=== PATIENT | male | born 1965 | race Caucasian/White ===

== ENCOUNTER 2018-03-03 09:58 | Emergency (ER) | payer SELFPAY ==
[2018-03-03 10:02] VITALS: BP 169/114; PULSE 89; RESP 16; TEMP 36.7; O2SAT 97
--- NOTE | 2018-03-03 10:28 | W.ED.GENAD ---
Discharge Plan Disposition Patient Disposition: HOME Condition: Good Discharge Details Chief Complaint: DentalOral Clinical Impression: Dental infection Primary Care Provider: LAURA,LOCAL ED Provider: Bruce Conway Home Meds and New Rx's Prescriptions: New penicillin V potassium 500 mg tablet 500 mg PO BID 10 Days Qty: 20 RF: 0 oxycodone-acetaminophen [Percocet] 5-325 mg tablet 1 tab PO .QHS PRN (Reason: Dental abcess pain) Qty: 7 RF: 0 No Action lisinopril 10 mg Tablet 10 mg PO DAILY RF: 0 Discharge Instructions Instructions: Dental Abscess (ED) Additional Instructions: Keep dentist appointment this week. Take all antibiotics. Referrals: [facility] Emergency Dept. [Outside] - Return if symptoms worsen Medical Decision Making Patient tolerated injection of Lidocaine 1% plain to the base of the affected tooth and gum. I used 30 g needle and .5 cc. Patient had immediate pain relief. There was slight bleeding and oozing of puss. We discussed risk versus benefits of using opiate. He preferred not to have much as he is a single father and has to work. He is scheduled to see a dentist in four days. I prescribed Pen VK for the infection and seven percocet for the pain to be taken only at night. Advised to return if symptoms worsen otherwise with dentist CLARI. HPI General Date/Time Provider Initiated Documentation: 03/03/18 10:01. Limitations to Documentation: no limitations. Information obtained by: patient. History of Present Illness 52 year old M presents to the emergency department with the chief complaint of Dental abscess, described as moderate, Patient did receive the following treatments prior to arrival, NSAID HPI Narrative: 52 y/o male here with c/o dental pain with infection. He chipped a upper left tooth about a week ago. Since then he has noticed increased pain with swelling at the base of the tooth. He has an appointment with his dentist in four days. Pain now unbearable and the swelling is worse. Denies any allergies to antibiotics. Has allergy to codeine but unsure of symptoms with allergy. Denies problems swallowing, fever, or SOB. Related Data Home Medications Medication Instructions Recorded Confirmed lisinopril 10 mg PO DAILY 03/03/18 03/03/18 oxycodone-acetaminophen [Percocet] 1 tab PO .QHS PRN #7 tab 03/03/18 penicillin V potassium 500 mg PO BID 10 Days #20 tab 03/03/18 Previous Rx's Medication Instructions Recorded oxycodone-acetaminophen [Percocet] 1 tab PO .QHS PRN #7 tab 03/03/18 penicillin V potassium 500 mg PO BID 10 Days #20 tab 03/03/18 Allergies Allergy/AdvReac Type Severity Reaction Status Date / Time codeine AdvReac Unverified 03/03/18 10:04 General Stated Complaint: DentalOral DIEGO: 4 Review of Systems Constitutional Reports as per HPI Eyes Reports system reviewed and no additional complaints, except as docu ENT Reports dental pain and Reports otalgia Cardiovascular Reports system reviewed and no additional complaints, except as docu Respiratory Reports system reviewed and no additional complaints, except as docu Gastrointestinal Reports system reviewed and no additional complaints, except as docu PFSH Social History Smoking/Tobacco Use Status: Current-Occasional Exam Const General: cooperative, healthy appearing, uncomfortable and no acute distress Nutritional Appearance: average body habitus Orientation: alert, awake and oriented x3 HENMT Head: normal to inspection Ears: hearing grossly normal bilaterally and TM's normal bilaterally General nose exam: external nose normal, nares normal and nasal mucous membranes and turbinates normal Face and sinus: sinuses nontender Face images: 1. swelling Mouth: oral mucosae normal, lip normal, tongue normal, oropharynx normal, no muffled voice and no trismus Teeth and gingiva: caries Teeth image: 1. Tooth fractured from decay. Swelling at the apical surface. Very painful to touch. No drainage. I injected .5 cc of 1% lidocaine at the base of tooth 12, 13, 14. Pt tolerated well and felt immediate less pain. Slight blood mixed with puss drained. Throat: posterior oropharynx normal Eyes General: appearance normal, both eyes and all related structures Neck Neck: normal visual inspection, full ROM and no lymphadenopathy Resp Effort & Inspection: normal respiratory effort Auscultation: clear to auscultation bilaterally Cardio Rate: regular rate Rhythm: regular rhythm Heart Sounds: S1 normal and S2 normal Course Vital Signs Temperature 36.7 C 03/03/18 10:02 Pulse 89 03/03/18 10:02 Respiratory Rate 16 03/03/18 10:02 Blood Pressure 169/114 H 03/03/18 10:02 Pulse Oximetry 97 03/03/18 10:02 Temperature 36.7 C 03/03/18 10:02 Temperature Source Skin 03/03/18 10:02 Pulse 89 03/03/18 10:02 Respiratory Rate 16 03/03/18 10:02 Respiratory Effort Non-Labored 03/03/18 10:05 Blood Pressure 169/114 H 03/03/18 10:02 Pulse Oximetry 97 03/03/18 10:02 Pain Level 10 03/03/18 10:05
--- NOTE | 2018-03-03 10:31 | ED.GENADUL_ITS ---
Discharge Plan Disposition Patient Disposition: HOME Condition: Good Discharge Details Chief Complaint: DentalOral Clinical Impression: Dental infection Primary Care Provider: LAURA,LOCAL ED Provider: Bruce Conway Home Meds and New Rx's Prescriptions: New penicillin V potassium 500 mg tablet 500 mg PO BID 10 Days Qty: 20 RF: 0 oxycodone-acetaminophen [Percocet] 5-325 mg tablet 1 tab PO .QHS PRN (Reason: Dental abcess pain) Qty: 7 RF: 0 No Action lisinopril 10 mg Tablet 10 mg PO DAILY RF: 0 Discharge Instructions Instructions: Dental Abscess (ED) Additional Instructions: Keep dentist appointment this week. Take all antibiotics. Referrals: [facility] Emergency Dept. [Outside] - Return if symptoms worsen Medical Decision Making Patient tolerated injection of Lidocaine 1% plain to the base of the affected tooth and gum. I used 30 g needle and .5 cc. Patient had immediate pain relief. There was slight bleeding and oozing of puss. We discussed risk versus benefits of using opiate. He preferred not to have much as he is a single father and has to work. He is scheduled to see a dentist in four days. I prescribed Pen VK for the infection and seven percocet for the pain to be taken only at night. Advised to return if symptoms worsen otherwise with dentist CLARI. HPI General Date/Time Provider Initiated Documentation: 03/03/18 10:01 . Limitations to Documentation: no limitations . Information obtained by: patient . History of Present Illness 52 year old M presents to the emergency department with the chief complaint of Dental abscess, described as moderate, Patient did receive the following treatments prior to arrival, NSAID HPI Narrative: 52 y/o male here with c/o dental pain with infection. He chipped a upper left tooth about a week ago. Since then he has noticed increased pain with swelling at the base of the tooth. He has an appointment with his dentist in four days. Pain now unbearable and the swelling is worse. Denies any allergies to antibiotics. Has allergy to codeine but unsure of symptoms with allergy. Denies problems swallowing, fever, or SOB. Related Data Home Medications Medication Instructions Recorded Confirmed lisinopril 10 mg PO DAILY 03/03/18 03/03/18 oxycodone-acetaminophen [Percocet] 1 tab PO .QHS PRN #7 tab 03/03/18 penicillin V potassium 500 mg PO BID 10 Days #20 tab 03/03/18 Previous Rx's Medication Instructions Recorded oxycodone-acetaminophen [Percocet] 1 tab PO .QHS PRN #7 tab 03/03/18 penicillin V potassium 500 mg PO BID 10 Days #20 tab 03/03/18 Allergies Allergy/AdvReac Type Severity Reaction Status Date / Time codeine AdvReac Unverified 03/03/18 10:04 General Stated Complaint: DentalOral DIEGO: 4 Review of Systems Constitutional Reports as per HPI Eyes Reports system reviewed and no additional complaints, except as docu ENT Reports dental pain and Reports otalgia Cardiovascular Reports system reviewed and no additional complaints, except as docu Respiratory Reports system reviewed and no additional complaints, except as docu Gastrointestinal Reports system reviewed and no additional complaints, except as docu PFSH Social History Smoking/Tobacco Use Status: Current-Occasional Exam Const General: cooperative, healthy appearing, uncomfortable and no acute distress Nutritional Appearance: average body habitus Orientation: alert, awake and oriented x3 HENMT Head: normal to inspection Ears: hearing grossly normal bilaterally and TM's normal bilaterally General nose exam: external nose normal, nares normal and nasal mucous membranes and turbinates normal Face and sinus: sinuses nontender Face images: 2 1. swelling Mouth: oral mucosae normal, lip normal, tongue normal, oropharynx normal, no muffled voice and no trismus Teeth and gingiva: caries Teeth image: 2 1. Tooth fractured from decay. Swelling at the apical surface. Very painful to touch. No drainage. I injected .5 cc of 1% lidocaine at the base of tooth 12, 13, 14. Pt tolerated well and felt immediate less pain. Slight blood mixed with puss drained. Throat: posterior oropharynx normal Eyes General: appearance normal, both eyes and all related structures Neck Neck: normal visual inspection, full ROM and no lymphadenopathy Resp Effort & Inspection: normal respiratory effort Auscultation: clear to auscultation bilaterally Cardio Rate: regular rate Rhythm: regular rhythm Heart Sounds: S1 normal and S2 normal Course Vital Signs Temperature 36.7 C 03/03/18 10:02 Pulse 89 03/03/18 10:02 Respiratory Rate 16 03/03/18 10:02 Blood Pressure 169/114 H 03/03/18 10:02 Pulse Oximetry 97 03/03/18 10:02 Temperature 36.7 C 03/03/18 10:02 Temperature Source Skin 03/03/18 10:02 Pulse 89 03/03/18 10:02 Respiratory Rate 16 03/03/18 10:02 Respiratory Effort Non-Labored 03/03/18 10:05 Blood Pressure 169/114 H 03/03/18 10:02 Pulse Oximetry 97 03/03/18 10:02 Pain Level 10 03/03/18 10:05
== END 2018-03-03 10:40 | disposition home or self-care (01) ==
LOC: ER 10:43
PROVIDERS: Emergency Provider Nurse Practitioner Family
DX: K04.7 Periapical abscess without sinus (principal); F17.210 Nicotine dependence, cigarettes, uncomplicated
CPT/HCPCS: 99283

== ENCOUNTER 2019-10-06 02:38 | Outpatient (CLI) | payer MEDICAID, SELFPAY ==
[2019-10-06 09:56] LABS: HCT 45.3 % (40.0-50.0); HGB 15.7 g/dL (13.5-17.5); Mean Corp. HGB Concentration 34.7 g/dL (32.0-36.0); Mean Corpuscular Hemoglobin 29.7 pg (27.0-33.0); Mean Corpuscular Volume 85.6 fL (80-95); Mean Platelet Volume 9.1 fL (8.0-11.0); Platelet Count 284 x1000/uL (130-400); RBC 5.29 m/cumm (4.50-6.00); RBC Distribution Width 13.2 % (11.8-14.1); White Blood Cell Count 9.85 k/cumm (4.4-10.8)
[2019-10-06 10:09] LABS: Hemoglobin A1C 9.4 % (3.8-5.6)
[2019-10-06 10:25] LABS: COMMENT (LAB VIEW ONLY) 150.28 mg/dL; Microalb ug/mg Crea 16.4 ug/mg Cr
[2019-10-06 10:58] LABS: ALT 41 U/L (16-63); AST 14 U/L (15-37); Albumin 4.1 g/dL (3.4-5.0); Alkaline Phosphatase 127 U/L (46-116); Anion Gap 10.6 mmol/L (3-11); BUN 12 mg/dL (7-18); Bilirubin, Total 0.4 mg/dL (0.2-1.0); CO2 26.4 mmol/L (21.0-32.0); CREATININE 0.89 mg/dL (0.70-1.30); Calcium 9.3 mg/dL (8.5-10.1); Calculated LDL 146 mg/dL (<100); Chloride 101 mmol/L (98-107); Cholesterol 222 mg/dL (<200); Glucose 217 mg/dL (74-106); HDL Cholesterol 31 mg/dL (40-60); Potassium 4.5 mmol/L (3.5-5.1); Sodium 138 mmol/L (136-145); Total Protein 7.5 g/dL (6.4-8.2); Triglyceride 228 mg/dL (<150)
== END 2019-10-06 02:58 ==
PROVIDERS: PCP Family Medicine; Visit Provider Family Medicine
DX: I10 Essential (primary) hypertension (principal); E78.5 Hyperlipidemia, unspecified; E11.9 Type 2 diabetes mellitus without complications
CPT/HCPCS: 36415; 80053; 80061; 85027; 82043; 82570; 83036

== ENCOUNTER 2019-11-04 01:17 | Outpatient (CLI) | payer MEDICAID, SELFPAY ==
[2019-11-04] MEDS: Omnipaque 350 MG/ML 100 ML BTL IJ (12:55)
--- NOTE | 2019-11-04 12:57 | DI.CT_ITS ---
EXAM: CT ABDOMEN PELVIS CTA CLINICAL HISTORY: Abdominal aortic aneurysm, I71.4. TECHNIQUE: Imaging Protocol: Axial CT angiography was performed with multi-slice acquisition and m ulti-planar and/or 3D reconstructions. CONTRAST MATERIAL: Intravenous: Omnipaque 350 Contrast volume:100 mL Oral: No COMPARISON: CT CT_ABDOMEN, PELVIS from 12/12/2015 FINDINGS: Vascular Structures: Celiac [place]/SMA: No evidence of occlusion or significant stenosis. Atherosclerosis. Renal Arteries: No evidence of occlusion or significant stenosis. There is a single renal artery per fusing each kidney. Aorta: There is a 3.9 AP by 4.2 transverse cm infrarenal abdominal aortic aneurysm. No dissection. Atherosclerosis. Pelvis: Iliac Arteries: No evidence of occlusion. Mild narrowing of the internal iliac arteries bilaterally . Atherosclerosis. Common Femoral Arteries: No evidence of occlusion or significant stenosis. Atherosclerosis. Soft Tissues:Unremarkable. Lung bases:Normal. Liver: Fatty infiltration. No measurable mass. Gallbladder and biliary tract: Cholelithiasis. No biliary ductal dilatation. Pancreas: Normal density, no abnormal calcifications or inflammatory process. Spleen: Normal. Kidneys: Normal size, contour and axis. No radiodense stones or obstructive uropathy. No masses seen. Adrenal glands: No masses seen. Bladder: Symmetric distention, no gross wall thickening. Bowel: No obstruction or bowel wall thickening. Anastomotic sutures are seen in the mid sigmoid colon . No evidence of an acute appendicitis. Peritoneal cavity: No ascites, collection or mesenteric inflammatory response. Bones: Degenerative changes are seen in the spine. Lymph nodes: Within normal limits. IMPRESSION: 1. 0.9 AP by 4.2 transverse cm infrarenal abdominal aortic aneurysm. 2. Atherosclerosis. 3. Cholelithiasis. No biliary ductal dilatation. 4. Fatty infiltration of the liver. RADIATION DOSE DELIVERED: Total DLP DATA REPOSITORY: All CT scans at this facility are submitted to the National Radiology Data Registry (NRDR) Dose Index Registry (DIR) with the [employer] (ACR). RADIATION OPTIMIZATION: All CT scans at this facility use at least one of these dose optimization te chniques: automated exposure control; mA and/or kV adjustment per patient size (includes targeted exa ms where dose is matched to clinical indication); or iterative reconstruction.
== END 2019-11-04 01:37 ==
PROVIDERS: PCP Family Medicine; Visit Provider Family Medicine
DX: I71.4 Abdominal aortic aneurysm, without rupture (principal); K80.20 Calculus of gallbladder without cholecystitis without obstruction; K76.0 Fatty (change of) liver, not elsewhere classified; I25.10 Atherosclerotic heart disease of native coronary artery without angina pectoris
CPT/HCPCS: 74174; J3490

== ENCOUNTER 2022-04-09 15:26 | Emergency (ER) | payer MEDICAID, SELFPAY ==
[2022-04-09] VITALS (17 sets, daily range): BP systolic 118–145; BP diastolic 75–98; PULSE 83–99; RESP 12–24; TEMP 36.7; O2SAT 94–98
--- NOTE | 2022-04-09 15:30 | DI.CT_ITS ---
Exam(s) CT ABDOMEN PELVIS CTA EXAM: CT ABDOMEN PELVIS CTA CLINICAL HISTORY: aaa, severe abdominal pain. TECHNIQUE: Imaging Protocol: Axial CT angiography was performed with multi-slice acquisition and m ulti-planar and/or 3D reconstructions. CONTRAST MATERIAL: Intravenous: Omnipaque 350 Contrast volume:structured data in ml Oral: no COMPARISON: CT CT ABDOMEN PELVIS CTA from 11/04/2019 FINDINGS: Vascular Structures: Celiac [place]/SMA: No evidence of stenosis. Renal Arteries: No evidence of stenosis. There is a single renal artery perfusing each kidney. Aorta: Stable infrarenal abdominal aortic aneurysm measuring 4.2 Cm. No dissection. Small amount of mural thrombus, stable. Moderate mural calcification. Pelvis: Iliac Arteries: Stable mild dilatation proximal right common iliac artery. No evidence of stenosis. Common Femoral Arteries: No evidence of stenosis. Soft Tissues: Lung bases:Normal. Liver: Mildly enlarged. Hepatic steatosis.. No measurable mass. Gallbladder and biliary tract: No radiodense calculus or dilation. Pancreas: Normal density, no abnormal calcifications or inflammatory process. Spleen: Normal. Kidneys: Normal size, contour and axis. No radiodense stones or obstructive uropathy. No masses seen. Adrenal glands: No masses seen. Bladder: Symmetric distention, no gross wall thickening. Bowel: No obstruction or bowel wall thickening. Peritoneal cavity: No ascites, collection or mesenteric inflammatory response. Bones: No fracture, lytic or blastic lesion. Degenerative disc changes with disc bulging and endplate osteophyte at L4-5 and L5-S1. Lymph nodes: Within normal limits. IMPRESSION: Stable 4.2 centimeter abdominal aortic aneurysm with mild mural thrombus. Branch vessels are patent. No acute abnormality. RADIATION DOSE DELIVERED: 606.84mGy.cm Total DLP DATA REPOSITORY: All CT scans at this facility are submitted to the National Radiology Data Registry (NRDR) Dose Index Registry (DIR) with the [employer] (ACR). RADIATION OPTIMIZATION: All CT scans at this facility use at least one of these dose optimization te chniques: automated exposure control; mA and/or kV adjustment per patient size (includes targeted exa ms where dose is matched to clinical indication); or iterative reconstruction.
[2022-04-09 15:44] LABS: Source Nasal/Nares
--- NOTE | 2022-04-09 15:44 | ED.GENADUL_ITS ---
Discharge Plan Disposition Patient Disposition: Home Condition: Stable Discharge Details Clinical Impression: Abdominal pain, Hyperglycemia Primary Care Provider: Unknown,Unknown ED Provider: Chito Acevedo Home Meds and New Rx's Prescriptions: Continued insulin glargine [Lantus U-100 Insulin] 100 unit/mL solution 30 unit SC QHS Qty: 30 3RF (DME) BD Insulin Syringe (half unit) 0.3 mL 31 gauge x 5/16 syringe See Rx Instructions .ROUTE .MEDSUPPLY Qty: 100 5RF Rx Instructions: Twice daily with NPH insulin lisinopril 20 mg tablet 20 mg PO DAILY aspirin 81 mg capsule 81 mg PO DAILY epinephrine 0.3 mg/0.3 mL auto-injector 0.3 mg IM ONCE Rx Instructions: as a single dose; may repeat once Jardiance 10 mg tablet 10 mg PO DAILY sertraline 100 mg tablet 150 mg PO DAILY tramadol 50 mg tablet 100 mg PO Q12H PRN Discontinued sildenafil [Viagra] 100 mg tablet 100 mg PO DAILY PRN Rx Instructions: administer 30 minutes to 4 hours before activity acetaminophen 500 mg capsule 1,000 mg PO Q6H PRN No Action atorvastatin 40 mg tablet 40 mg PO QHS Qty: 90 3RF atorvastatin 20 mg tablet 20 mg PO DAILY Discharge Instructions Instructions: Oxycodone, Rapid Release (By mouth), Abdominal Pain (ED) Additional Instructions: Allow for bowel rest today. Clear fluids only today and tomorrow morning. If pain is resolved you can advance to bland foods tomorrow afternoon. Please clear fluids to stay hydrated. Please contact your primary care physician to arrange follow-up. Call tomorrow. Some medication cannot be reconciled today. Be sure to discuss this with your doctor and take medication as prescribed. Return to the ER immediately for any worsening or new concerning symptoms. Medical Decision Making [id number] --56-year-old male with history of diverticulitis, status post partial colectomy, AAA, here with worsening abdominal pain since yesterday. Patient diffusely tender, worse in his lower abdomen. He has had frequent loose stool since yesterday. Consider AAA rupture versus diverticulitis versus other. Plan to obtain CT of the abdomen pelvis. -- CT of the abdomen pelvis was interpreted by radiology:IMPRESSION: 1. Stable infrarenal abdominal aortic aneurysm in comparison with prior study 11/04/2019. No expansion. No acute features of rupture or impending rupture. 2. Mesenteric branch arteries are widely patent without stenotic features. 3. 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 4. Degenerative lumbar spine disease. Minor posterior broad-based disc bulge at L4-L5 with associated mild to moderate spinal stenosis. See series 5, image 52. 5. Previous partial resection of the sigmoid colon with anastomotic staple line noted. No acute bowel pathology. --Patient reassessed and pain significantly improved after analgesic. -- Labs reviewed and leukocytosis noted. Glucose mildly elevated at 161. Patient does have mild anion gap acidosis 14.2. I recommended IV fluid and patient provided informed refusal. Patient unable to provide stool sample here. Patient requesting discharge and will plan to follow-up with his primary care physician tomorrow. All results were discussed with the patient. He understands importance of timely follow-up and that he should return immediately for any worsening or new concerning symptoms. Lab Data Lab results reviewed: Yes I reviewed the patient's lab results. Labs: Laboratory Tests Range/Units 04/09/22 04/09/22 04/09/22 15:35 15:35 15:35 WBC (4.4-10.8) 10^3/uL 15.38 H RBC (4.36-5.78) 10^6/uL 5.64 Hgb (13.5-17.5) g/dL 16.6 Hct (40.0-50.0) % 47.9 MCV (80-95) fL 85 MCH (27.0-33.0) pg 29.4 MCHC (32.0-36.0) % 34.7 RDW (11.8-14.1) % 12.5 Plt Count (130-400) 10^3/uL 297 MPV (8.0-11.0) fL 8.8 Immature Gran % 0.8 Neutrophils % 70.7 Lymphocytes % 20.2 Monocytes % 6.4 Eosinophils % 1.2 Basophils % 0.7 Nucleated RBC % (0.0-0.3) % 0.0 Absolute Neutrophils (1.2-6.7) 10^3/uL 10.87 H Absolute Lymphocytes (1.2-3.4) 10^3/uL 3.11 Absolute Monocytes (0.1-0.8) 10^3/uL 0.98 H Absolute Eosinophils (0.0-0.7) 10^3/uL 0.18 Absolute Basophils (0.0-0.2) 10^3/uL 0.11 Sodium (136-145) mmol/L 137 Potassium (3.5-5.1) mmol/L 3.9 Chloride (98-107) mmol/L 99 Carbon Dioxide (21.0-32.0) mmol/L 23.8 Anion Gap (3-11) mmol/L 14.2 H BUN (7-18) mg/dL 19 H Creatinine (0.70-1.30) mg/dL 0.8 Est GFR (CKD-EPI 2020) (mL/min/1.73m2) 105.17 Glucose (74-106) mg/dL 161 H Calcium (8.5-10.1) mg/dL 9.6 Total Bilirubin (0.2-1.0) mg/dL 0.4 AST (15-37) U/L 21 ALT (16-63) U/L 36 Alkaline Phosphatase (46-116) U/L 139 H Total Protein (6.4-8.2) g/dL 8.9 H Albumin (3.4-5.0) g/dL 4.6 Lipase (73-393) U/L 135 Urine Color (Yellow) Urine Clarity (Clear) Urine pH (5-8) Ur Specific [place] (1.005-1.025) Urine Protein (Negative) mg/dL Urine Ketones (Negative) mg/dL Urine Blood (Negative) Urine Nitrite (Negative) Urine Bilirubin (Negative) Urine Urobilinogen (Up TO 0.2) EU/dL Ur Leukocyte Esterase (Negative) Urine Glucose (Negative) mg/dL COVID-19 Source SARS-CoV-2 (PCR) (Negative) Patient ABO/Rh O Positive Antibody Screen NEGATIVE Range/Units 04/09/22 04/09/22 15:40 17:20 WBC (4.4-10.8) 10^3/uL RBC (4.36-5.78) 10^6/uL Hgb (13.5-17.5) g/dL Hct (40.0-50.0) % MCV (80-95) fL MCH (27.0-33.0) pg MCHC (32.0-36.0) % RDW (11.8-14.1) % Plt Count (130-400) 10^3/uL MPV (8.0-11.0) fL Immature Gran % Neutrophils % Lymphocytes % Monocytes % Eosinophils % Basophils % Nucleated RBC % (0.0-0.3) % Absolute Neutrophils (1.2-6.7) 10^3/uL Absolute Lymphocytes (1.2-3.4) 10^3/uL Absolute Monocytes (0.1-0.8) 10^3/uL Absolute Eosinophils (0.0-0.7) 10^3/uL Absolute Basophils (0.0-0.2) 10^3/uL Sodium (136-145) mmol/L Potassium (3.5-5.1) mmol/L Chloride (98-107) mmol/L Carbon Dioxide (21.0-32.0) mmol/L Anion Gap (3-11) mmol/L BUN (7-18) mg/dL Creatinine (0.70-1.30) mg/dL Est GFR (CKD-EPI 2020) (mL/min/1.73m2) Glucose (74-106) mg/dL Calcium (8.5-10.1) mg/dL Total Bilirubin (0.2-1.0) mg/dL AST (15-37) U/L ALT (16-63) U/L Alkaline Phosphatase (46-116) U/L Total Protein (6.4-8.2) g/dL Albumin (3.4-5.0) g/dL Lipase (73-393) U/L Urine Color (Yellow) Yellow Urine Clarity (Clear) Clear Urine pH (5-8) 5.5 Ur Specific [place] (1.005-1.025) 1.010 Urine Protein (Negative) mg/dL Negative Urine Ketones (Negative) mg/dL Negative Urine Blood (Negative) Negative Urine Nitrite (Negative) Negative Urine Bilirubin (Negative) Negative Urine Urobilinogen (Up TO 0.2) EU/dL 0.2 Ur Leukocyte Esterase (Negative) Negative Urine Glucose (Negative) mg/dL 500 H COVID-19 Source Nasal/Nares SARS-CoV-2 (PCR) (Negative) Negative Patient ABO/Rh Antibody Screen Sign Out No HPI General Mode of arrival: EMS . Date/Time Provider Initiated Documentation: 04/09/22 15:37 . Limitations to Documentation: no limitations . Information obtained by: patient and EMS . HPI Narrative: 56-year-old male with history of AAA, diverticulitis, status post partial colectomy, presents with chief complaint of severe abdominal pain. Pain started yesterday and has persisted. Pain constant. Worse today. Pain is severe with no modifiers. He has associated loose stool. With frequent bowel movements today. Related Data Home Medications Medication Instructions Recorded Confirmed atorvastatin 40 mg tablet 40 mg PO QHS #90 tabs 01/19/20 insulin glargine 100 unit/mL 30 unit (0.3 mL) subcut QHS #30 mL 01/19/20 04/09/22 subcutaneous solution (Lantus U-100 Insulin) insulin syr/ndl U100 half kiley 0.3 #100 ea 05/28/20 mL 31 gauge x 5/16 (BD Insulin Syringe Ultra-Fine (half unit)) aspirin 81 mg capsule 81 mg PO DAILY 03/22/22 04/09/22 atorvastatin 20 mg tablet 20 mg PO DAILY 03/22/22 04/09/22 empagliflozin 10 mg tablet 10 mg PO DAILY 03/22/22 04/09/22 (Jardiance) epinephrine 0.3 mg/0.3 mL 0.3 mg IM ONCE 03/22/22 injection, auto-injector lisinopril 20 mg tablet 20 mg PO DAILY 03/22/22 04/09/22 sertraline 100 mg tablet 150 mg PO DAILY 03/22/22 04/09/22 tramadol 50 mg tablet 100 mg PO Q12H PRN 03/22/22 04/09/22 Previous Rx's Medication Instructions Recorded atorvastatin 40 mg tablet 40 mg PO QHS #90 tabs 01/19/20 insulin glargine 100 unit/mL 30 unit (0.3 mL) subcut QHS #30 mL 01/19/20 subcutaneous solution (Lantus U-100 Insulin) insulin syr/ndl U100 half kiley 0.3 #100 ea 05/28/20 mL 31 gauge x 5/16 (BD Insulin Syringe Ultra-Fine (half unit)) Allergies Allergy/AdvReac Type Severity Reaction Status Date / Time bee venom protein (honey bee) Allergy Verified 04/09/22 15:33 codeine AdvReac Unverified 04/09/22 15:33 General Stated Complaint: Abd Prob DIEGO: 2 Review of Systems All systems reviewed & are unremarkable except as noted in HPI and below Constitutional Constitutional: Denies fever(s) Cardiovascular Cardiovascular: Denies chest pain Gastrointestinal Gastrointestinal: Reports as per HPI PFSH All Active Problems (Updated 04/09/22 @ 18:54 by Chito Acevedo MD) Abdominal pain (Acute) Hyperglycemia (Acute) Hepatic steatosis (Acute) Cholelithiasis (Acute) Tobacco dependence syndrome (Acute) Retrolisthesis (Acute ~10/10/13) Hyperlipidemia (Acute ~11/10/10) HTN (hypertension) (Chronic) Gastroesophageal reflux disease (Chronic) Facet hypertrophy of lumbar region (Acute ~10/10/13) DM II (diabetes mellitus, type II), controlled (Acute ~09/24/13) Degenerative disc disease, lumbar (Acute ~10/10/13) Abdominal aortic aneurysm (Acute ~01/08/15) 3.9 x 4[address] scan from 11/04/2019 Medical History Acute diverticulitis (~12/12/15) Anxiety Borderline diabetes (~11/10/10) Chronic back pain (~09/07/17) Depression Dextroscoliosis (~10/10/13) History of colonic diverticulitis Myofascial pain (~10/10/13) Obesity Restless legs syndrome (~11/09/10) Sacroiliitis Social History Smoking/Tobacco Use Status: Current-Occasional Smoking risk assessment performed?: Yes Alcohol Intake: current Alcohol Intake frequency: a few times a month Drug use: Daily Substance use type: marijuana Caregiver/Support person: No Household members: significant other Housing: house Pets and animals: No Sexually active: Yes Do you think of yourself as: straight/heterosexual Current gender identity: male What is your relationship status?: living with partner How often do you talk on the phone with friends or family?: three or more times per week How often do you get together with friends or relatives?: decline to answer How often do you attend hinduism or restorationist services?: decline to answer Do you belong to any clubs or organized social groups?: no Panel score (0-1 are the most socially isolated patients): 2 What type of physical activity do you participate in: walking Duration: 30-45 minutes/day Frequency: daily Kristin/Pentecostalism: None Seatbelt use: always Helmet use: No Drive intox or ride w/intox public transit bus driver: No Do you feel safe at home: Yes Do you feel safe in your relationship?: Yes Exam Const General: cooperative HENMT Mouth: moist mucous membranes Eyes Conjunctivae: normal conjunctivae Sclera: normal sclerae Resp Auscultation: clear to auscultation bilaterally, no rales, no rhonchi and no wheezes Cardio Rate: regular rate and not tachycardic Rhythm: regular rhythm GI Palpation: soft, not firm, no guarding, no masses, not rigid and tender (Diffuse tenderness, worse lower abdomen) Skin General skin exam: no rashes or lesions noted Neuro General: patient alert, patient awake, patient oriented x3 and tone normal Extrem General: no edema and other (1+ DP bilaterally) Psych Appearance: grossly normal Mental Status: mental status grossly normal Speech and Movement: speech and movement normal Course Vital Signs Vital signs: Vital Signs Temperature 36.7 C 04/09/22 15:30 Pulse 91 H 04/09/22 15:30 Respiratory Rate 15 04/09/22 15:30 Blood Pressure 145/98 H 04/09/22 15:30 Pulse Oximetry 98 04/09/22 15:30 Temperature 36.7 C 04/09/22 15:30 Temperature Source Skin 04/09/22 15:30 Pulse 91 H 04/09/22 15:30 Respiratory Rate 15 04/09/22 15:30 Respiratory Effort Non-Labored 04/09/22 15:36 Blood Pressure 145/98 H 04/09/22 15:30 Blood Pressure Position Sitting 04/09/22 15:30 Pulse Oximetry 98 04/09/22 15:30 Oxygen Delivery Method Room Air 04/09/22 15:30 Oxygen Flow Rate 0 04/09/22 15:30 Pain Level 9 04/09/22 15:30 Lab/Test Results Lab/Test Results: Laboratory Tests Range/Units 04/09/22 15:40 COVID-19 Source Nasal/Nares PAWSS Have you Been Recently Intoxicated or Drunk Within the Last 30 days?: No Have you Ever Experienced Previous Episodes of Alcohol Withdrawal?: No Have you ever Experienced Withdrawal Seizures?: No Have you ever Experienced Delirium Tremens(DT)s?: No Have you ever undergone Alcohol Rehabilitation Treatment (i.e, inpt ot outpatient treatment programs)?: No Have you ever Experienced Blackouts?: No Have you ever Combined Alcohol with other Downers within the last 90 days?: No Have you ever Combined Alcohol with any other Substance of Abuse during the last 90 days?: No Positive Blood Alcohol level on Presentation? [PCS.BAL]: No Evidence of Increased Autonomic Activity (i.e. HR>120, tremor, sweating, agitation, nausea)?: No Result: 0
[2022-04-09 15:49] LABS: Abs Immature Grans 0.12 10^3/uL (0.0-0.06); Absolute Eosinophil Count 0.18 10^3/uL (0.0-0.7); Absolute Monocyte Count 0.98 10^3/uL (0.1-0.8); Basophils % 0.7; Eosinophils % 1.2; HCT 47.9 % (40.0-50.0); HGB 16.6 g/dL (13.5-17.5); Immature Grans % 0.8; Lymphocytes % 20.2; MCH 29.4 pg (27.0-33.0); MCHC 34.7 % (32.0-36.0); MCV 85 fL (80-95); MPV 8.8 fL (8.0-11.0); Monocytes % 6.4; Neutrophils % 70.7; Platelet Count 297 10^3/uL (130-400); RBC 5.64 10^6/uL (4.36-5.78); RDW 12.5 % (11.8-14.1); RDW-SD 38.5 fL; WBC 15.38 10^3/uL (4.4-10.8)
[2022-04-09 15:50] LABS: Absolute Basophil Count 0.11 10^3/uL (0.0-0.2); Absolute Lymphocyte Count 3.11 10^3/uL (1.2-3.4); Absolute Neutrophil Count 10.87 10^3/uL (1.2-6.7)
[2022-04-09 16:04] LABS: ALT 36 U/L (16-63); AST 21 U/L (15-37); Albumin 4.6 g/dL (3.4-5.0); Alkaline Phosphatase 139 U/L (46-116); Anion Gap 14.2 mmol/L (3-11); BUN 19 mg/dL (7-18); Bilirubin, Total 0.4 mg/dL (0.2-1.0); CO2 23.8 mmol/L (21.0-32.0); CREATININE 0.8 mg/dL (0.70-1.30); Calcium 9.6 mg/dL (8.5-10.1); Chloride 99 mmol/L (98-107); Estimated GFR 105.17 (mL/min/1.73m2); Glucose 161 mg/dL (74-106); Lipase 135 U/L (73-393); Potassium 3.9 mmol/L (3.5-5.1); Sodium 137 mmol/L (136-145); Total Protein 8.9 g/dL (6.4-8.2)
[2022-04-09] MEDS: ACETAMINOPHEN 1,000 MG/100 ML BTL 400 MG IVPB (16:27)
[2022-04-09 16:28] LABS: COVID-19 PCR Negative (Negative)
[2022-04-09] MEDS: Normal Saline - Diluent 50 ML VIAL IJ (17:16)
[2022-04-09] MEDS: Omnipaque 350 MG/ML 100 ML BTL IJ (17:16)
--- NOTE | 2022-04-09 17:32 | DI.VRAD_ITS ---
PROCEDURE INFORMATION: Exam: CTA Abdomen and Pelvis With Contrast Exam date and time: 04/09/2022 5:01 PM Age: 56 years old Clinical indication: Acute; Patient HX: Aaa, severe abdominal pain TECHNIQUE: Imaging protocol: Computed tomographic angiography of the abdomen and pelvis with contrast. 3D rendering (Not supervised by radiologist): MIP and/or 3D reconstructed images were created by the technologist. COMPARISON: CT ABDOMEN PELVIS CTA 11/04/2019 12:46 PM FINDINGS: Lungs: Lung bases are clear. Pleural spaces: No pleural effusion. Heart: Normal heart size. No pericardial effusion. Right-sided coronary artery atherosclerotic calcium is visible. Aorta: An infrarenal abdominal aortic fusiform aneurysm is noted. AP diameter of 3.9 cm and transverse diameter of 4 cm. Aneurysm extends proximally 6 cm cephalo caudal. There is no evidence of rupture. On previous study 11/04/2019, the aneurysm measured 3.8 cm AP x 4.0 cm transversely. No evidence of expansion or enlargement. There is some right and posterior mural thrombus noted. See series 5, image 42. This is a small rim of mural thrombosis. This was also evident on prior exam, but is less prominent on current evaluation suggesting some partial resorption. Celiac trunk and mesenteric arteries: Celiac artery is widely patent. Superior mesenteric arteries widely patent. Renal arteries: Right renal artery is widely patent. Left renal artery is widely patent. Right iliac arteries: Right common iliac artery fusiform aneurysmal change at 18 mm. No stenotic changes. Left iliac arteries: Left common iliac artery without aneurysmal change. No stenotic changes. Liver: Diffuse mild fatty liver change. Gallbladder and bile ducts: The gallbladder is normal in size and shape. No stones or inflammatory changes. Pancreas: Mild pancreatic atrophy. No acute changes. Spleen: The spleen is normal in size, contour and attenuation. Adrenal glands: The adrenal glands are normal in size and contour bilaterally. Kidneys and ureters: The kidneys bilaterally are unremarkable. Normal attenutation. No hydronephrosis. No calculi. Stomach and bowel: Gastric morphology is unremarkable. No edema. No gastric outlet obstruction. Small bowel loops are normal in course and caliber. There is no mucosal edema or bowel wall thickening. No obstructive features. The colon contains formed fecal material. There is no bowel wall thickening. No inflammatory features. No obstruction. Previous distal sigmoid bowel resection with anastomotic staple line. There is a paucity of feces within the colon. This is likely related to decreased p.o. intake. Appendix: No evidence of appendicitis. Intraperitoneal space: Unremarkable. No free air. No significant fluid collection. Lymph nodes: Unremarkable. No enlarged lymph nodes. Urinary bladder: Urinary bladder is unremarkable in appearance. No wall thickening. No intravesicular calculi. No intravesicular gas.Reproductive: Prostate gland is unremarkable. Reproductive: Unremarkable as visualized. Bones/joints: Degenerative lumbar spine disease. Soft tissues: Unremarkable. IMPRESSION: 1. Stable infrarenal abdominal aortic aneurysm in comparison with prior study 11/04/2019. No expansion. No acute features of rupture or impending rupture. 2. Mesenteric branch arteries are widely patent without stenotic features. 3. 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 4. Degenerative lumbar spine disease. Minor posterior broad-based disc bulge at L4-L5 with associated mild to moderate spinal stenosis. See series 5, image 52. 5. Previous partial resection of the sigmoid colon with anastomotic staple line noted. No acute bowel pathology. Dictated and Authenticated by: Yemi Villagomez MD. Ordering:JIM Dale MD
[2022-04-09] MEDS: HYDROmorphone 2 MG/ML SYR 1 MG IVP (18:00)
[2022-04-09] MEDS: Normal Saline Flush 10 ML SYR IVP (18:01)
[2022-04-09 18:38] LABS: Bilirubin Negative (Negative); Blood Negative (Negative); Clarity Clear (Clear); Glucose 500 mg/dL (Negative); Ketones Negative (Negative); Leukocyte Esterase Negative (Negative); Nitrite Negative (Negative); Urobilinogen 0.2 EU/dL (Up TO 0.2); pH 5.5 (5-8)
[2022-04-09] MEDS: oxyCODONE 5 MG TAB PO (19:00)
== END 2022-04-09 19:03 | disposition home or self-care (01) ==
PROVIDERS: Emergency Provider Student in an Organized Health Care Education/Training Program
DX: R10.84 Generalized abdominal pain (principal); R73.9 Hyperglycemia, unspecified; Z79.82 Long term (current) use of aspirin; Z79.4 Long term (current) use of insulin; Z20.822 Contact with and (suspected) exposure to COVID-19
CPT/HCPCS: 36415; 80053; 83690; 86850; 86900; 86901; 87635; 96374; 96375; 99285; 74174; 81003; 85025; 99284; J0131; J1170; J3490

== ENCOUNTER → 2022-12-28 11:55 | Outpatient (CLI) | payer MEDICAID, SELFPAY ==
--- NOTE | 2022-12-28 | DI.RAD_ITS ---
Exam(s) XR HIP LT COMPLETE AP PELVIS EXAM: XR HIP LT COMPLETE AP PELVIS CLINICAL HISTORY: NEW LEFT HIP PAIN ANTERIOR, EVAL FOR OA AND IMPINGEMENT. TECHNIQUE: 2D digital imaging was performed. COMPARISON: No exams were available for comparison FINDINGS: Two views. No evidence of acute pelvic nor hip fracture. No hip joint space narrowing. No osseous lesions. On the additional lateral view of the left hip there is a thin 4 x 1 mm calcific density parallel to the tip of the greater trochanter. Correlation with site of tenderness is recommended. This may rep resent focal avulsion injury or calcification with in the tendon at this level. IMPRESSION: Left greater trochanter finding as above. DATA REPOSITORY: RADIATION DOSE DELIVERED:
--- OUTSIDE RECORDS SUMMARY | 2022-12-28 11:57 | XMS_ITS | Continuity of Care Document ---
Author Name Unknown Organization [facility], [facility] Address [address] [place] [address] Phone [phone]
--- OUTSIDE RECORDS SUMMARY | 2022-12-28 11:57 | XMS_ITS | Continuity of Care Document ---
Author Name Unknown Address [address] [place] [address] Phone [facility] Address [address] [place] [address] Phone Care Team Providers Care Occ Therapist Name Role Phone Hardik Higuera Primary Care Provider [phone] ELISA Boss Emergency Provider [facility] Chief Complaint and Reason for Visit Chief Complaint CHEST PAIN, INJURY LUMP ON BACK OF NECK Allergies, Adverse Reactions, Alerts Allergen Type Severity Reaction Last Updated Verified Status codeine Allergy October 26, 2021 9:39am Yes A ctive Social History Smoking Status Status Start Date End Date Date of Observa tion Smokes tobacco daily (finding) October 26, 2021 9:58am Observation Status Observation Response Date of Response Alcohol Use Yes October 26, 2021 9:58am alcohol intake frequency a few times a month Oct 9:58am Substance/Street Drug Use No October 062021 9:58am Substance Use Treatment No October 9:58am substance use type does not use October 26 9:58am Smoking Status Current every day smoker October 262021 9:58am Additional Data Assigned Sex Male Problems Active Problems Medical Problem Onset Date Status Abscess, neck Active Inactive/Resolved Problems Medical Problem Onset Date Status Chest wall muscle strain Resolve d Medications Medication Status Dose Units Route Directions Qty Days St art Date End Date Instructions Clonidine Hcl Active 1 TAB PO DAILY Oct 12:00a m Atorvastatin Active 1 TAB PO DAILY October 26, 2021 12:00a m Sertraline Active 100 TAB PO DAILY October 26, 2021 12:00a m Aspirin Active 1 TAB PO DAILY October 26, 2021 12:00a m Epinephrine Active EA October 26, 2021 12:00a m Insulin Glargine (Lantus Solostar U-100 Insulin) 100 unit/mL (3 mL) insulin pen Active 50 UNITS SC DAILY October 26, 2021 12:00a m Empagliflozin (Jardiance) 10 mg tablet Active 1 TAB PO DAILY October 26, 2021 12:00a m Oxycodone-Acet aminophen (Percocet) 5-325 mg tablet Active 1 TAB PO Q6H 5 October 26, 2021 Lantus U-100 Insulin Discontinu ed September 25, 2021 12:00a m October 26, 2021 9:43a m Novolog U-100 Insulin aspart Discontinu ed September 25, 2021 12:00a m October 26, 2021 9:40a m lisinopril Discontinu ed September 25, 2021 12:00a m October 26, 2021 9:42a m sertraline Discontinu ed September 25, 2021 12:00a m October 26, 2021 9:40a m Methocarbamol Active 1000 MG PO THREE TIMES A DAY September 25, 2021 12:00a m Procedures Procedure Date Performed Status Ribs 3 vw Min RT w/ PA CXR September 25, 2021 11:01a m completed Relevant Diagnostic Tests and/or Laboratory Data Diagnostic Imaging Reports Report Dictated Date/Time Dictated By Status Radiology Report September 25, 2021 11:44am Bhargav Ramirez MD completed [facility] RADIOLOGY REPORT PATIENT NAME: KIRA BENÍTEZ DATE OF : 1965 ATTENDING/ER PHYSICIAN: ER/ATTENDING PHYSICIAN: Aime Boss NP PRIMARY CARE PHYS: Hardik Higuera MD ADMITTING PHYSICIAN: CONSULTING PHYSICIAN: PROCEDURE DATE: 09/25/21 REPORT STATUS: Signed DICTATING PHYSICIAN: Bhargav Ramirez MD REASON FOR EXAM: chest injury right side PROCEDURE INFORMATION: Exam: XR Right Ribs with PA Chest Exam date and time: 09/25/2021 11:16 AM Age: 56 years old Clinical indication: Chest wall pain; Patient HX: Yesterday morning PT was working on his tractor, lifting the deck and felt a pop in his right ribs. Denies SOB. Pain with inspiration; Additional info: Chest injury right side TECHNIQUE: Imaging protocol: XR Right ribs with PA chest. Views: 3 views COMPARISON: No relevant prior studies available. FINDINGS: Lungs: Unremarkable. No consolidation. Pleural spaces: Unremarkable. No pleural effusion. No pneumothorax. Heart/Mediastinum: Unremarkable. No cardiomegaly. Bones/joints: No rib fractures are conspicuous. Calcific deposit adjacent to the right humeral head consistent with rotator cuff calcific tendinitis. IMPRESSION: No acute findings. Electronically Signed By : Bhargav Ramirez MD dd: 09/25/21 1144 09/25/21 1144 Vital Signs Vital Reading Result Reference Range Collection Date/Time Weight 90.71 kg September 25, 2021 11:09am Body Temperature 98.4 [degF] 97.6-99.6 September 25, 2 022 11:09am Heart Rate 70 /min 60-100 September 25, 2021 11:09am Respiratory rate 18 /min 12-September 25, 2 022 11:45am Oxygen saturation by Pulse oximetry 98 % 95-100 September 25, 2021 11:09 am BP Systolic 140 mm[Hg] 100-140 September 25, 2021 11:09am BP Diastolic 80 mm[Hg] 50-85 September 25, 2021 11:09am Height 72 [in_i] October 26, 2021 9:43am Weight 90.71 kg October 26, 2021 9:43am Body Temperature 98.3 [degF] 97.6-99.6 October 26, 2021 9:43am Heart Rate 84 /min 60-100 October 26, 2021 9:43am Respiratory rate 20 /min 12-24 October 26, 2021 9:43am Oxygen saturation by Pulse oximetry 96 % 95-100 October 26, 2021 9:43 am BP Systolic 103 mm[Hg] 100-140 October 26, 2021 9:43am BP Diastolic 66 mm[Hg] 50-85 October 26, 2021 9:43am Advance Directives Advance Directive Response Recorded Date/ Time Does patient have an Advanced Directive? No August 19, 2010 7:45pm Do we have a copy on file here at [facility]? No September 25, 2021 11:38am Pt has a Living Will? No August 7:45pm Do we have a copy on file here at [facility]? No September 25, 2021 11:38am Pt has a Power of Computed Tomography Technician? No Apri l 2010 7:45pm Do we have a copy on file here at [facility]? No September 25, 2021 11:38am Insurance Providers Guarantor KIRA BENÍTEZ Address [address] [place] [address] Contact Info. Home Phone: Payer Policy Id Coverage Id Subscriber's Name Subscriber Id Effective Date Expiration Date [facility] [id number] KIRA BENÍTEZ [id number] SELF PAY Self N/A Encounters Encounter Location(s) Arrival/Admit Date Discharge/Depart Date Provider(s) Departed Emergency [facility]Emergency Department September 25, 2021 10:31am September 25, 2021 12:29pm null Departed Emergency [facility]gency [facility] October 26, 2021 9:09am October 26, 2021 11:00am null Functional Status Observation Response Date Recorded Living Situation Home October 26, 2021 11:00am Plan of Treatment Future Tests Future scheduled test information is unavailable Pending Tests Test Name Date ordered Gram Stain October 26, 2021 10:5 2am Abscess Culture October 26, 2021 10:5 2am Future Visits Future appointment information is unavailable Referrals to Other Providers Reason for Referral Referral Start Date Provider Provider Contact Information Provider Address Hardik Higuera MD Work Phone: [address] [place] [phone] Hardik Higuera MD Work Phone: [address] [place] [phone] Future Procedures Procedure Name Scheduled Date Incentive Spirometry September 25, 2021 11:0 4am Future Medications Future medication information is unavailable Patient Instructions Muscle Strain (DC) Abscess Incision and Drainag e (DC) Hospital Discharge Instructions Additional Instructions Warm compresses or soaks to promote drainage for 15min at a time. Use Percocet only for severe pain and do not drive or operate machinery while taking it. Follow-up with your PCP as scheduled or immediately here in the ED for acutely worsening pain, fever, other new/concerning symptoms.
--- OUTSIDE RECORDS SUMMARY | 2022-12-28 11:57 | XMS_ITS | Continuity of Care Document ---
Author Name [facility] Address [address] [place] [id number] Organization [facility] Address [address] [place] [address] Care Team Providers Care Grain Cleaner Name Role Phone Hardik Higuera Primary Care Physician [phone] Allergies, Adverse Reactions, Alerts Allergen Type Severity Reaction Last Updated Verified Status codeine Allergy September 25, 2021 Y Active Medications Active Medications Medication Dose Units Route Sig Qty Start Date St atus Lantus U-100 Insulin September 25, 2021 Active Novolog U-100 Insulin aspart September 25, 2021 Active lisinopril September 25, 2021 Active sertraline September 25, 2021 Active Methocarbamol 1000 MG ORAL THREE TIMES A DAY PRN For muscle pain September 25, 2021 Active Problem List Active Problems Medical Problem Onset Date Status Chest wall muscle strain Active Procedures Procedure Date Status Ribs 3 vw Min RT w/ PA CXR September 25, 2021 compl eted Relevant Diagnostic Tests and/or Laboratory Data No known relevant diagnostic tests, laboratory data, and/or discharge summary. Chief Complaint and Reason for Visit Encounter Admit Date Chief Complaint Reason for V isit Departed Emergency September 25, 2021 10:31am CHEST PAIN, IN [facility] Discharge Instructions Additional Discharge Instructions Your c hest x-ray is normal. Clinically this is most likely a pulled muscle of the chest from overexertion. A cold compress can help diminish any swelling and bruising. Advil or Tylenol may be helpful for pain. You are also prescribed a nonnarcotic muscle relaxer. This could cause drowsiness so do not drive while taking this. Be sure that you are taking deep full breaths as discussed so you do not develop a cough which would be much worse pain. If you begin to have difficulty breathing, productive cough, fever or other worrisome symptoms return to the emergency department right away or see your doctor right away. Instruction/Education Provided Muscle St rain (DC) Hospital Discharge Medications Medication Dose Units Route Sig Qty Days Order Date Status Ins tructions Lantus U-100 Insulin September 25, 2021 Active Novolog U-100 Insulin aspart September 052021 Active lisinopril September 052021 Active sertraline September 052021 Active Methocarbamol 1000 MG ORAL THREE TIMES A DAY PRN For muscle pain September 25, 2021 Active Encounters Encounter Facility Location Admit/Visit Date Discharge/Departure Date Attending Provider Departed Emergency [facility] Emergency Department September 25, 2021 10:31am September 25, 2021 12:29pm Functional Status Query Response Date Recorded Comment Living Situation Home September 25, 2021 12:28pm Immunizations No known immunizations. Plan of Care Instructions Muscle Strain (DC) Social History Query Response Date Recorded Comment Smoking Status Never smoker September 25, 2021 12:27pm alcohol intake frequency a few times a month September 25 12:27pm Query Response Start Date Stop Date Smoking Status Never smoker Vital Signs Vital Reading Result Reference Range Collection Date/Time Weight 90.718 kg September 25, 2021 11 :09am Temperature 98.4 F 97.6 F-99.6 F September 25, 2021 1 1:09am Pulse 70 BPM 60-100 September 25, 2021 11 :09am Respiration 18 RPM 12-September 25, 2021 11 :45am Pulse Oximetry 98 % 95-100 September 25, 2021 11:09am Blood Pressure Systolic 140 100-140 September 25, 2021 11:09am Blood Pressure Diastolic 80 50-85 September 25, 2021 11:09am
--- OUTSIDE RECORDS SUMMARY | 2022-12-28 11:57 | XMS_ITS | Continuity of Care Document ---
Author Name [facility] Address [address] [place] [id number] Organization [facility] Address [address] [place] [address] Care Team Providers Care Vibration Analyst Name Role Phone Hardik Higuera Primary Care Physician [phone] Allergies, Adverse Reactions, Alerts Allergen Type Severity [...] Date Chief Complaint Reason for V isit Registered Emergency September 25, 2021 10:31am CHEST PAIN, INJURY Hospital Discharge Instructions Additional Discharge Instructions Your [...] Location Admit/Visit Date Discharge/Departure Date Attending Provider Registered Emergency [facility] Emergency Department September 25, 2021 10:31am Functional Status No known functional status. Immunizations No known immunizations. Plan of Care Instructions Muscle Strain (DC) Social History No known social history. Vital Signs Vital Reading Result Reference Range Collection Date/Time Weight 90.718 kg September 25, 2021 11 :09am Temperature 98.4 F 97.6 F-99.6 F September 25, 2021 1 1:09am Pulse 70 BPM 60-100 September 25, 2021 11 :09am Respiration 18 RPM 12-24 September 25, 2021 11 :45am Pulse Oximetry 98 % 95-100 September 25, 2021 11:09am Blood Pressure Systolic 140 100-140 September 25, 2021 11:09am Blood Pressure Diastolic 80 50-85 September 25, 2021 11:09am
--- OUTSIDE RECORDS SUMMARY | 2022-12-28 11:57 | XMS_ITS | Continuity of Care Document ---
Author Name Unknown Organization [facility] Address [address] [place] [address] Phone Care Team Providers Care Economic Historian Name Role Phone Hardik Higuera MD Unavailable Unavailable Allergies, Adverse Reactions, Alerts Substance Reaction Status Criticality bee venom protein (honey bee) Active No Information codeine Active No Information Medications Medication Instructions Dosage Effective Dates (start - stop) Status Comments sertraline 50 mg tablet take 1 tablet by ORAL route every day 50 MG - Active trazodone 50 mg tablet take 2 - 3 tablet by ORAL route every bedtime after meals 100 MG - Active buspirone 10 mg tablet take 1 Tablet by Oral route 2 times every bedtime 1 Tablet - Active Trulicity 0.75 mg/0.5 mL subcutaneous pen injector inject (0.75MG) by subcutaneous route every week 0.75 MG - Active Claritin 10 mg tablet take 1 tablet by oral route every day 10 MG - Active tramadol 50 mg tablet take 2 tablet by oral route every 12 hours as needed for severe shoulder pain - Active Jardiance 25 mg tablet take 1 tablet by oral route every day in the morning 25 MG - Active dose increase OneTouch Verio test strips take 1 by Misc.(Non-Drug; Combo Route) route 3-4 times every day - Active EpiPen 2-Enrico 0.3 mg/0.3 mL injection, auto-injector inject 0.3 milliliter by intramuscular route once as needed for anaphylaxis 0.3 MG - Active aspirin 81 mg tablet,delayed release take 1 tablet by oral route every day 81 MG - Active atorvastatin 20 mg tablet take 1 tablet by oral route every day 20 MG - Active lisinopril 20 mg tablet take 1 tablet by oral route every day 20 MG - Active albuterol sulfate HFA 90 mcg/actuation aerosol inhaler inhale 2 puff by Inhalation route every 4 - 6 hours as needed 2 puff - Active OneTouch Delica Lancets 33 gauge to use to check BS 3-4 times per day - Active pen needle, diabetic 31 gauge x 5/16 to use with insulin pens 3-4 times per day - Active acetaminophen 500 mg capsule take 2 capsule by oral route every 6 hours as needed 1000 MG - Active Viagra 100 mg tablet take 1/4-1/2 tablet by oral route every day as needed approximately 1 hour before sexual activity - Active Procedures Procedure Date OFFICE/OUTPATIENT VISIT, EST Collecton Capillary Blood Spec GLYCOSYLATED HEMOGLOBIN TEST OFFICE/OUTPATIENT VISIT, EST Routine Venipuncture Complete Cbc, Automated GLYCOSYLATED HEMOGLOBIN TEST Lipid Panel Comprehen Metabolic Panel Routine Venipuncture Complete Cbc, Automated GLYCOSYLATED HEMOGLOBIN TEST Comprehen Metabolic Panel Thyroid Stim Hormone OFFICE/OUTPATIENT VISIT, EST Routine Venipuncture Complete Cbc, Automated GLYCOSYLATED HEMOGLOBIN TEST Lipid Panel Comprehen Metabolic Panel OFFICE/OUTPATIENT VISIT, EST OFFICE/OUTPATIENT VISIT, EST Collecton Capillary Blood Spec GLYCOSYLATED HEMOGLOBIN TEST Offic/outpt E&m Estab Mod-hi 4 Routine Venipuncture Complete Cbc, Automated Comprehen Metabolic Panel GLYCOSYLATED HEMOGLOBIN TEST Lipid Panel HIV-1 AG W/HIV-1 & HIV-2 AB HEPATITIS C AB TEST Prostate Spec Antig; Tot Collecton Capillary Blood Spec GLYCOSYLATED HEMOGLOBIN TEST OFFICE/OUTPATIENT VISIT, [facility] TR[facility] CARE MGMT 7 DAY DISCH Duplicate Encounter Advance Directives Directive Yes / No Effective Date File Name No Information Encounters Encounter Description Practice Location Reason(s) For Visit Diagnoses Date Provider Providers Copied on Encounter [facility] , [address] [place] [address], [id number], [place] tel:[phone] [facility] telemed (chief complaint)h ip pain (chief complaint)a nxiety (chief complaint) Hip pain, left 3 [facility] [address] [place] [address], [id number], [place]. tel:[phone] OFFICE/OUTPA TIENT VISIT, [facility] , [address] [place] [address], [id number], [place] tel:[phone] [facility] diabetes (chief complaint)a nxiety (chief complaint)d epression (chief complaint) Type 2 diabetes mellitus without complication, with long-term current use of insulinAnxiety 3 [facility] [address] [place] [address], [id number], [place]. tel:[phone] [facility] , [address] [place] [address], [id number], [place] tel:[phone] [facility] No Information 3 [facility] [address] [place] [address], [id number], [place]. tel:[phone] [facility] , [address] [place] [address], [id number], tel:[phone] [facility] No Information 3 Nurse Office. [address] [place] [address], [facility], . tel:[phone] [facility] , [address] [place] [address], [id number], tel:[phone] [facility] No Information 3 [facility]. [address] [place] [address], [facility], [place]. tel:[phone] OFFICE/OUTPA TIENT VISIT, [facility] , [address] [place] [address], [id number], tel:[phone] [facility] cough (chief complaint)m ed management (chief complaint)d entist (chief complaint) Type 2 diabetes mellitus without complication, with long-term current use of insulinAnxietyPeri pheral vascular diseaseChronic bilateral low back pain without sciaticaDental caries, unspecified 3 [facility]. [address] [place] [address], [facility], . tel:[phone] OFFICE/OUTPA TIENT VISIT, [facility] , [address] [place] [address], [id number], tel:[phone] [facility] diabetes (chief complaint)b ack pain (chief complaint)c hest pain (chief complaint) Type 2 diabetes mellitus without complication, with long-term current use of insulinAnxietyPeri pheral vascular diseaseChronic bilateral low back pain without sciaticaOther chronic pain 3 [facility]. [address] [place] [address], [facility], [place]. tel:[phone] [facility] , [address] [place] [address], [id number], tel:[phone] [facility] Bilateral hearing loss, unspecified hearing loss type Nov- 2 Nurse Office. [address] [place] [address], [facility], [place]. tel:[phone] OFFICE/OUTPA TIENT VISIT, [facility] , [address] [place] [address], [id number], [place] tel:[phone] [facility] diabetes (chief complaint)f ollow up (chief complaint) Bilateral hearing loss, unspecified hearing loss typeUnspecified visual lossType 2 diabetes mellitus without complication, with long-term current use of insulinPeripheral vascular diseaseAnxietyChro rudy left shoulder painPain, dental Feb- 2 [facility] [address] [place] [address], [facility], [place]. tel:[phone] OFFICE/OUTPA TIENT VISIT, [facility] , [address] [place] [address], [id number], [place] tel:[phone] [facility] shoulder pain (chief complaint)c hest pain (chief complaint) Type 2 diabetes mellitus without complication, with long-term current use of insulinAnxietyChro rudy left shoulder painOther chronic painPeripheral vascular diseaseCigarette smoker 2 [facility] [address] [place] [address], [id number], [place]. tel:[phone] Offic/outpt E&m Estab Mod-hi [address] [place] [address] , [address] [place] [address], [id number], [place] tel:[phone] [facility] allergic (chief complaint)d iabetes (chief complaint)a nxiety (chief complaint) Type 2 diabetes mellitus without complication, with long-term current use of insulinAnxietyHTNA bdominal aortic aneurysm (AAA) without ruptureErectile dysfunction, unspecified erectile dysfunction type 2 [facility] [address] [place] [address], [facility], [place]. tel:[phone] OFFICE/OUTPA TIENT VISIT, [facility] , [address] [place] [address], [id number], [place] tel:[phone] [facility] insomnia (chief complaint) Type 2 diabetes mellitus without complication, with long-term current use of insulinAbdominal aortic aneurysm (AAA) without rupturePerianal abscessHTNAnxiety 2 [facility]. [address] [place] [address], [facility], . tel:[phone] TRANS [facility] 7 DAY DISCH [facility] , [address] [place] [address], [address] [place] [address], tel:[phone] [facility] NPV (chief complaint) Perianal abscessType 2 diabetes mellitus without complication, with long-term current use of insulinLong term (current) use of insulinHTNAbdomina l aortic aneurysm (AAA) without rupture 2 [facility]. [address] [place] [address], [facility], . tel:[phone] [facility] , [address] [place] [address], [address] [place] [address], tel:[phone] [facility] No Information 2 [facility]. [address] [place] [address], [facility], . tel:[phone] Family History Family Member Type Diagnosis Age At Onset No Information Payers Payer name Insurance type Covered libertarian ID Authoriza tion(s) No Information Social History Type Description Quantity Date Captured Comments Alcohol Use Details No Caffeine Use Details Unknown Tobacco Use Status Smoking Status Current every day smoker 2022 Sex Male Chief Complaint And Reason For Visit From encounter dated '12/27/2022 16:15'. telemed (chief complaint). Description: TELECOMMUNICATIONS APPOINTMENT:THIS PATIENT AND GUARDIAN EXPRESSED INFORMED CONSENT TO THIS COW RIDER, PRIOR TO INITIATING THIS TELECOMMUNICATIONS ENCOUNTER.I DISCUSSED WITH PATIENT AND GUARDIAN LIMITATIONS OF TELECOMMUNICATION MODALITY, AND LIKELY BENEFITS OF IN-PERSON MEDICAL APPOINTMENT VS TELECOMMUNICATION APPOINTMENTS.THE PATIENT AND GUARDIAN EXPRESS UNDERSTANDING OF THE ABOVE, AND ARE DESIROUS OF THIS TELECOMMUNICATION APPOINTMENT TODAY.This visit will be billed to your insurance and could result in a balance just as if you were seen in office. hip pain (chief complaint). Description: Additional information: onset 2 weeks ago. location is lefty hip. Severity is 8/10 pain. Occurs primarily when legs have been crossed for a period of time andhe uncrosses them. anxiety (chief complaint). Description: Additional information: Pt reports that buspirone isn't working for him, he is feeling no difference since starting the medication. Plan Of Treatment Date Type Action Status Goal Colorectal cance r screen, stool DNA QuARTS with hemoglobin MARTY. Due on due Goal Dietitian. Due on due Goal INFLUENZA. Due on due Goal HIV-1 AG W/HIV-1 & HIV-2 AB due Goal BMI counseling d ocumented in Health Promotion Plan. Due on due Goal Calcium; Tot due Goal Lipid Panel. Due on due Goal Lipid panel. Due on due Goal PSA. Due on due Goal FOBT. Due on due Goal Depression screening. Due on due Goal Diabetes Screening. Due on A due Goal Foot exam. Due on due Goal Zoster vaccine (1st). Due on due Goal Annual PE. Due on due Goal Zoster vaccine (2nd). Due on due Goal HEPATITIS C AB TEST due Goal ASCVD 10 year risk. Due on A due Goal Hemoglobin A1C. Due on due Goal Creatinine. Due on 24 due Goal CBC due Goal Electrolyte Panel. Due on due Goal Colonoscopy. Due on due Goal CT low dose, lung cancer scr een. Due on due Goal Lipid panel. Due on due Goal Electrocardiogram, complete (ECG). Due on due Goal Dilated eye exam. Due on Dec due Goal Urine microalbumin. Due on A due Goal Urine microalbumin. Due on A due Goal INFLUENZA. Due on due Goal Zoster vaccine (). Due on due Goal Annual PE. Due on due Goal PSA. Due on due Goal Dietitian. Due on due Goal Hemoglobin A1C. Due on due Goal BMI counseling d ocumented in Health Promotion Plan. Due on due Goal Dilated eye exam. Due on Dec due Goal Depression screening. Due on due Goal Colorectal cance r screen, stool DNA QuARTS with hemoglobin MARTY. Due on due Goal Colonoscopy. Due on due Goal HEPATITIS C AB TEST due Goal HIV-1 AG W/HIV-1 & HIV-2 AB due Goal Foot exam. Due on due Goal Electrolyte Panel. Due on due Goal Zoster vaccine (1st). Due on due Goal Electrocardiogram, complete (ECG). Due on due Goal FOBT. Due on due Goal Lipid panel. Due on due Goal ASCVD 10 year risk. Due on A due Goal CT low dose, lung cancer scr een. Due on due Goal Diabetes Screening. Due on due Goal Lipid panel. Due on due Goal CBC due Goal Lipid Panel. Due on due Goal Calcium; Tot due Goal Creatinine. Due on due Goal Urine microalbumin. Due on due Goal Hemoglobin A1C. Due on due Goal Dilated eye exam. Due on Nov due Goal Colonoscopy. Due on due Goal INFLUENZA. Due on due Goal HIV-1 AG W/HIV-1 & HIV-2 AB due Goal Dietitian. Due on due Goal Zoster vaccine (1st). Due on due Goal Depression screening. Due on due Goal PSA. Due on due Goal Zoster vaccine (2nd). Due on due Goal FOBT. Due on due Goal Foot exam. Due on due Goal ASCVD 10 year risk. Due on due Goal Diabetes Screening. Due on due Goal Colorectal cance r screen, stool DNA QuARTS with hemoglobin MARTY. Due on due Goal Electrocardiogram, complete (ECG). Due on due Goal CT low dose, lung cancer scr een. Due on due Goal Electrolyte Panel. Due on due Goal Calcium; Tot due Goal HEPATITIS C AB TEST due Goal CBC due Goal Annual PE. Due on due Goal BMI counseling d ocumented in Health Promotion Plan. Due on due Goal Creatinine. Due on due Goal Lipid panel. Due on due Goal Lipid Panel. Due on due Goal Lipid panel. Due on due Goal Lipid panel. Due on due Goal Lipid panel. Due on due Goal Lipid Panel. Due on due Goal CBC due Goal Zoster vaccine (). Due on due Goal Electrocardiogram, complete (ECG). Due on due Goal Hemoglobin A1C. Due on due Goal Colonoscopy. Due on due Goal Zoster vaccine (1st). Due on due Goal Calcium; Tot due Goal Electrolyte Panel. Due on due Goal FOBT. Due on due Goal Depression screening. Due on due Goal ASCVD 10 year risk. Due on due Goal Creatinine. Due on 24 due Goal Dilated eye exam. Due on September due Goal INFLUENZA. Due on due Goal Foot exam. Due on due Goal PSA. Due on due Goal HEPATITIS C AB TEST due Goal Urine microalbumin. Due on due Goal Diabetes Screening. Due on due Goal Colorectal cance r screen, stool DNA QuARTS with hemoglobin MARTY. Due on due Goal HIV-1 AG W/HIV-1 & HIV-2 AB due Goal Annual PE. Due on due Goal BMI counseling d ocumented in Health Promotion Plan. Due on due Goal Dietitian. Due on due Goal CT low dose, lung cancer scr een. Due on due Goal Dietitian. Due on due Goal Lipid Panel. Due on due Goal BMI counseling d ocumented in Health Promotion Plan. Due on due Goal Lipid panel. Due on due Goal Zoster vaccine (1st). Due on due Goal Diabetes Screening. Due on due Goal PSA. Due on due Goal Zoster vaccine (2nd). Due on due Goal Depression screening. Due on due Goal Lipid panel. Due on 024 due Goal FOBT. Due on due Goal Foot exam. Due on 3 due Goal HEPATITIS C AB TEST due Goal Hemoglobin A1C. Due on due Goal CT low dose, lung cancer scr een. Due on due Goal Colonoscopy. Due on 023 due Goal Dilated eye exam. Due on September due Goal CBC due Goal Creatinine. Due on 24 due Goal Electrocardiogram, complete (ECG). Due on due Goal Annual PE. Due on due Goal INFLUENZA. Due on due Goal Calcium; Tot due Goal Urine microalbumin. Due on due Goal Electrolyte Panel. Due on due Goal Colorectal cance r screen, stool DNA QuARTS with hemoglobin MARTY. Due on due Goal HIV-1 AG W/HIV-1 & HIV-2 AB due Goal ASCVD 10 year risk. Due on due Goal HIV-1 AG W/HIV-1 & HIV-2 AB due Goal Electrocardiogram, complete (ECG). Due on due Goal Zoster vaccine (2nd). Due on due Goal BMI counseling d ocumented in Health Promotion Plan. Due on due Goal Annual PE. Due on due Goal Dilated eye exam. Due on May due Goal Hemoglobin A1C. Due on due Goal Depression screening. Due on due Goal Dietitian. Due on due Goal INFLUENZA. Due on due Goal Zoster vaccine (). Due on due Goal PSA. Due on due Goal CBC due Goal Colorectal cance r screen, stool DNA QuARTS with hemoglobin MARTY. Due on due Goal HEPATITIS C AB TEST due Goal FOBT. Due on due Goal Urine microalbumin. Due on due Goal Foot exam. Due on due Goal Colonoscopy. Due on due Goal Calcium; Tot due Goal Electrolyte Panel. Due on due Goal ASCVD 10 year risk. Due on due Goal Lipid Panel. Due on due Goal Lipid panel. Due on due Goal Diabetes Screening. Due on due Goal Creatinine. Due on due Goal Lipid panel. Due on due Goal Lipid Panel. Due on due Goal Lipid panel. Due on due Goal Lipid panel. Due on due Goal Colorectal cance r screen, stool DNA QuARTS with hemoglobin MARTY. Due on due Goal Electrolyte Panel. Due on due Goal FOBT. Due on due Goal Dietitian. Due on due Goal Zoster vaccine (). Due on due Goal Depression screening. Due on due Goal ASCVD 10 year risk. Due on N due Goal HEPATITIS C AB TEST due Goal Foot exam. Due on due Goal Urine microalbumin. Due on N due Goal Electrocardiogram, complete (ECG). Due on due Goal CBC due Goal Zoster vaccine (). Due on due Goal Annual PE. Due on due Goal Calcium; Tot due Goal Creatinine. Due on due Goal INFLUENZA. Due on due Goal PSA. Due on due Goal Dilated eye exam. Due on Mar due Goal BMI counseling d ocumented in Health Promotion Plan. Due on due Goal Hemoglobin A1C. Due on due Goal HIV-1 AG W/HIV-1 & HIV-2 AB due Goal Diabetes Screening. Due on O due Goal Colonoscopy. Due on due Goal BMI counseling d ocumented in Health Promotion Plan. Due on due Goal Diabetes Screening. Due on O due Goal HEPATITIS C AB TEST due Goal CBC due Goal INFLUENZA. Due on due Goal Depression screening. Due on due Goal Electrolyte Panel. Due on Oc due Goal Zoster vaccine (). Due on due Goal Colonoscopy. Due on 022 due Goal ASCVD 10 year risk. Due on O due Goal Creatinine. Due on 23 due Goal PSA. Due on due Goal Colorectal cance r screen, stool DNA QuARTS with hemoglobin MARTY. Due on due Goal FOBT. Due on due Goal Calcium; Tot due Goal Zoster vaccine (). Due on due Goal HIV-1 AG W/HIV-1 & HIV-2 AB due Goal Annual PE. Due on due Goal Foot exam. Due on due Goal Electrocardiogram, complete (ECG). Due on due Goal Lipid panel. Due on 023 due Goal Lipid panel. Due on 023 due Goal Lipid Panel. Due on 023 due Goal Hemoglobin A1C. Due on due Goal Urine microalbumin. Due on O due Goal Dilated eye exam. Due on Feb due Goal Dietitian. Due on due Goal Depression screening. Due on due Goal Hemoglobin A1C. Due on due Goal Urine microalbumin. Due on due Goal INFLUENZA. Due on due Goal FOBT. Due on due Goal Zoster vaccine (). Due on due Goal Dilated eye exam. Due on Nov due Goal Annual PE. Due on due Goal ASCVD 10 year risk. Due on due Goal HIV-1 AG W/HIV-1 & HIV-2 AB due Goal BMI counseling d ocumented in Health Promotion Plan. Due on due Goal Foot exam. Due on due Goal Dietitian. Due on due Goal Creatinine. Due on due Goal Diabetes Screening. Due on due Goal Colonoscopy. Due on 022 due Goal CBC due Goal Lipid panel. Due on due Goal Calcium; Tot due Goal Colorectal cance r screen, stool DNA QuARTS with hemoglobin MARTY. Due on due Goal Electrocardiogram, complete (ECG). Due on due Goal PSA. Due on due Goal Electrolyte Panel. Due on due Goal Lipid Panel. Due on due Goal Zoster vaccine (). Due on due Goal HEPATITIS C AB TEST due Goal Lipid panel. Due on due Goal PSA. Due on due Goal BMI counseling d ocumented in Health Promotion Plan. Due on due Goal Lipid panel. Due on due Goal Zoster vaccine (1st). Due on due Goal Lipid Panel. Due on due Goal Dietitian. Due on due Goal ASCVD 10 year risk. Due on due Goal Depression screening. Due on due Goal Zoster vaccine (2nd). Due on due Goal Electrolyte Panel. Due on due Goal FOBT. Due on due Goal HIV-1 AG W/HIV-1 & HIV-2 AB due Goal Colorectal cance r screen, stool DNA QuARTS with hemoglobin MARTY. Due on due Goal Lipid panel. Due on due Goal Annual PE. Due on due Goal Creatinine. Due on due Goal Urine microalbumin. Due on due Goal Hemoglobin A1C. Due on due Goal HEPATITIS C AB TEST due Goal Calcium; Tot due Goal Electrocardiogram, complete (ECG). Due on due Goal Foot exam. Due on due Goal Colonoscopy. Due on 022 due Goal CBC due Goal INFLUENZA. Due on due Goal Dilated eye exam. Due on September due Goal Diabetes Screening. Due on due Goal Creatinine. Due on due Goal HIV-1 AG W/HIV-1 & HIV-2 AB. Due on due Goal CBC. Due on due Goal Lipid panel. Due on due Goal Colonoscopy. Due on due Goal Dilated eye exam. Due on Jul due Goal INFLUENZA. Due on due Goal Diabetes Screening. Due on due Goal Foot exam. Due on due Goal Electrolyte Panel. Due on Mo due Goal Hemoglobin A1C. Due on due Goal Urine microalbumin. Due on due Goal Calcium; Tot. Due on 2021 due Goal Electrocardiogram, complete (ECG). Due on due Goal Dietitian. Due on due Goal Zoster vaccine (1st). Due on due Goal HEPATITIS C AB TEST. Due on due Goal Colorectal cance r screen, stool DNA QuARTS with hemoglobin MARTY. Due on due Goal Annual PE. Due on due Goal Depression screening. Due on due Goal BMI counseling d ocumented in Health Promotion Plan. Due on due Goal Zoster vaccine (2nd). Due on due Goal FOBT. Due on due Goal Calcium; Tot. Due on 2021 due Goal Dilated eye exam. Due on Jun due Goal CBC. Due on due Goal Lipid panel. Due on due Goal Electrolyte Panel. Due on due Goal Diabetes Screening. Due on due Goal Electrocardiogram, complete (ECG). Due on due Goal Dietitian. Due on due Goal Urine microalbumin. Due on due Goal Foot exam. Due on due Goal Hemoglobin A1C. Due on due Goal BMI counseling d ocumented in Health Promotion Plan. Due on due Goal FOBT. Due on due Goal Colorectal cance r screen, stool DNA QuARTS with hemoglobin MARTY. Due on due Goal Annual PE. Due on due Goal Colonoscopy. Due on due Goal Zoster vaccine (2nd). Due on due Goal Depression screening. Due on due Goal HEPATITIS C AB TEST. Due on due Goal HIV-1 AG W/HIV-1 & HIV-2 AB. Due on due Goal INFLUENZA. Due on due Goal Zoster vaccine (1st). Due on due Referral Referred To: [address] [place], [place] [phone] Ordered: Referrals: *[facility] Dental. Location: [facility]. Consult ordered Referral Ordered: [facility] -Audiology (related to Bilateral hearing loss, unspecified hearing loss type) ordered Referral Referred To: [facility] Ordered: Referrals: Audiology. [facility] ordered Referral Ordered: [facility] Audiology -Audiology (related to Bilateral hearing loss, unspecified hearing loss type) ordered Referral Referred To: [facility] [address] [place] [address], [address] [phone] Ordered: Referrals: [facility]. Consult ordered Referral Referred To: [facility] Audiology [address] [place] [address]
[place], [address] [phone] Ordered: Referrals: Audiology. [facility] Audiology. Location: [facility]. Consult ordered Referral Ordered: [facility] -Orthopedic Surgery (related to Chronic left shoulder pain) ordered Referral Referred To: [facility] [address] [place] [address], [id number] [phone] Ordered: Referrals: Orthopedic Surgery. [facility]. Consult ordered Referral Ordered: [facility] -Ophthalmology (related to Type 2 diabetes mellitus without complication, with long-term current use of insulin) ordered Referral Referred To: [facility] [address], [phone] Ordered: Referrals: Ophthalmology. [facility]. Consult ordered Appointment Chaka Rodrigues BOOKED History Of Present Illness Encounter Date Complaint History Of Prese nt Illness anxiety Additional infor mation: Pt reports that buspirone isn't working for him, he is feeling no difference since starting the medication. hip pain Additional infor mation: onset 2 weeks ago. location is lefty hip. Severity is 8/10 pain. Occurs primarily when legs have been crossed for a period of time and he uncrosses them. telemed TELECOMMUNICATIO NS APPOINTMENT:THIS PATIENT AND GUARDIAN EXPRESSED INFORMED CONSENT TO THIS COW RIDER, PRIOR TO INITIATING THIS TELECOMMUNICATIONS ENCOUNTER.I DISCUSSED WITH PATIENT AND GUARDIAN LIMITATIONS OF TELECOMMUNICATION MODALITY, AND LIKELY BENEFITS OF IN-PERSON MEDICAL APPOINTMENT VS TELECOMMUNICATION APPOINTMENTS.THE PATIENT AND GUARDIAN EXPRESS UNDERSTANDING OF THE ABOVE, AND ARE DESIROUS OF THIS TELECOMMUNICATION APPOINTMENT TODAY.This visit will be billed to your insurance and could result in a balance just as if you were seen in office. anxiety Additional infor mation: Stopped taking sertraline 3 months ago. diabetes Additional infor mation: doing well overall. eating well and most veggies and fresh foods. occ high carb diet. checking BS twice per day. mostly low 100s. depression has been feeling much more anxious lately. hard time sleeping. restless thoughts. has been off sertraline and buspar for months as had side effects med management pt would like re fills of medications dentist pt would like he lp with getting into a dentist cough Additional infor mation: pt is quitting smoking and cough is bad would like to discuss inhaler. back pain Additional infor mation: body seems to go into limp mode for approx 3 days at a time. not sick but no energy during this time. chest pain The client prese nts with a complaint of chest pain. Relevant history for this client includes tobacco use. The chest pain is associated with abdominal pain and nocturia. Additional information: left sided chest pain high stress and anxiety - chewing nails frequently. diabetes Associated sympt oms include: Associated symptoms include: blurred vision burning of extremities, chest pain, urinary frequency, heartburn, hypoglycemic episodes - shakiness and nocturia., blurred vision, burning of extremities, chest pain, urinary frequency, heartburn, hypoglycemic episodes - shakiness and nocturia. Pertinent negatives include Pertinent negatives include constant hunger and frequent infections. constant hunger and frequent infections. follow up follow up on US, pt has not heard anything on scheduling that appt.pt would like hearing and eyes checkedfatigued recently diabetes Associated sympt oms include: blurred vision and chest pain. Pertinent negatives include dyspnea and slow healing wounds / sores. chest pain The client prese nts with a complaint of chest pain. Additional information: pt reports would like to get arteries checked. shoulder pain Location: left s [place]. The pain is aching. Additional information: surgery 2019 pt reports last 2 months has been painful. anxiety diabetes Home glucose sona george: Min 67, Max 203, Avg 140. Associated symptoms include: blurred vision and chest pain. Pertinent negatives include burning of extremities, dyspnea and slow healing wounds / sores. allergic pt is allergic t o Wasps and would like access to Epi Pen.pt has been in ED last year from a sting was not able to afford Epi pen. insomnia The patient pres ents with sleep problems. The client does not have: smoking or use of alcohol.Additional information: pt reports legs are restless at night keeps him awake. pilonidal area all healed up per pt. pain improved. NPV New patient pres ents to establish care. currently staying at [facility]Hospital discahge visit. and est care. Hospital admission: 06/12/21-06/20/21Diagnosis: perianal [id number] male with PMH of T2DM, tobacco dependence, HTN, HLD, GERD, AAA (4.2cm), s/p appendectomy, diverticulitis s/p lap sigmoid resection, who presented with perirectal pain. Admitted to acute surgery care service who drained perirectal abscess and placed a drain. Drain was ultimately removed and pt recovered well. has follow up appt with Reynold Dwyer PA-C from surgery on 06/24/21 at 3pm. During his stay his diabetes was poorly controlled and thus was started on basal bolus insulin, and discharged with plans for basal bolus insulin.Also started on sertraline 50mg daily for depression symptoms. pt having suicidal ideation and met with psychiatry while inpatient.Previously seen: 5 years agoCurrently [facility]: codeine when he was youngerdiabetes 230 averagewt-280Lantus Increase 45 to 50 unitsNovalag- 16 Instructions Date Instruction Additional Infor mireya labs today showing a 1c 8.4continue jardiance 25mg dailyadd trulicity low dose weeklyon lisinopril- BP well controlledon ASA 81mgon atorvastain 20mg Related to Type 2 diabetes mellitus without complication, with long-term current use of insulin agreed to restart bu spar 10mg bidincrease trazodone to 150mg qhs Related to Anxiety d/c sertraline and b usparcontinue trazodone qhs prn Related to Anxiety continue baclofen pr n for muscel spasmsconitnue low dose tramadol prn Related to Chronic bilateral low back pain without sciatica labs todaycontinue j ardiance 10mg dailyon lisinopril- BP well controlledon ASA 81mgon atorvastain 20mg Related to Type 2 diabetes mellitus without complication, with long-term current use of insulin add baclofen prn for muscel spasmsconitnue low dose tramadol prn Related to Chronic bilateral low back pain without sciatica due for [facility] july for AAA surveillance. Related to Peripheral vascular disease continue sertraline 150 mg dailycontinue clonidine low dose qhs prncontinue trazodone qhs prnadd buspirone 10mg bid for better anxiety control. Related to Anxiety off insulin altogeth er now. A1c today 7.1, still remains well controlled on just jardiance. continue jardiance 10mg dailyon lisinopril- BP well controlledon ASA 81mgon atorvastain 20mg Related to Type 2 diabetes mellitus without complication, with long-term current use of insulin Will refer for audio logy for hearing evaluation and consideration for hearing aids. Related to Bilateral hearing loss, unspecified hearing loss type Refer to [facility] last visit, patient not but hopefully will be able to offer him anything new, not interested in following up with them at this point. We will reconsider if worsening.tylenol prn for pain Related to Chronic left shoulder pain continue sertraline and agreed to increase to 150 mg dailycontinue clonidine low dose qhs prn Related to Anxiety will get carotid US to rule out stenosis. pending still Related to Peripheral vascular disease continue lantus to 5 0 u qhscheck A1c today and reassess need for mealtime insulin ongoing. continue jardiance 10mg dailyon lisinopril- BP well controlledon ASA 81mgon atorvastain 20mgrefer for diabetic eye exam- scheduled in december Related to Type 2 diabetes mellitus without complication, with long-term current use of insulin will get carotid US to rule out stenosis. Related to Peripheral vascular disease agreed to trial tram adol for severe pain prn- if working well will need contract and UDS next visit. refer to [facility] [place] [facility] for consulttylenol prn for pain Related to Chronic left shoulder pain continue sertraline to 100mg dailycontinue clonidine low dose qhs prnmet with BHgiven some contacts to look for therapist in community Related to Anxiety continue lantus to 5 0 u qhspt self discontinued novolog to 16u tid qac--- willl check A1c today and reassess need for mealtime insulin ongoing. continue jardiance 10mg dailyon lisinopril- BP well controlledadd ASA 81mgon atorvastain 20mgrefer for diabetic eye exam- scheduled in december Related to Type 2 diabetes mellitus without complication, with long-term current use of insulin agreed to trial viag ra prn. advised of cardiac sx to monitor for. Related to Erectile dysfunction, unspecified erectile dysfunction type increase sertraline to 100mg dailyd/c trazodoneadd clonidine low dose qhs prnmet with BHgiven some contacts to look for therapist in community Related to Anxiety continue lantus to 5 0 u qhscontinue novolog to 16u tid qacadding jardiance 10mg dailyon lisinopril- BP well controlledadd ASA 81mgadd atorvastain 20mg- consider increase to 40mg next visitrefer for diabetic eye examurine microalbumin next visit Related to Type 2 diabetes mellitus without complication, with long-term current use of insulin continue lisinopril 20mg dailyla bs today Related to HTN agreed to trial trazodone qhs Re lated to Anxiety continue lisinopril 20mg dailylabs next visit Related to HTN continue lantus to 5 0 u qhsincrease novolog to 16u tid qacadding jardiance 10mg dailyon lisinoprildiscuss adding statin next visit Related to Type 2 diabetes mellitus without complication, with long-term current use of insulin Related to Peria nal abscess increase lisinopril to 20mg carmita y Related to HTN incres lantus to 50 u qhsincrease novolog to 16u tid qacon lisinoprildiscuss adding statin or metformin next visit Related to Type 2 diabetes mellitus without complication, with long-term current use of insulin continue ibuprofenag claudette to prescribe 10 days of oxy tid prn- 30 tabsthen transisiton to tramadol for taper offwould not continue oxy longer unless complciation arises. pt left [facility] after our visit- goign gto stay with his sister in [place]. but plans to contineu to follow up with [facility] for medical in the office. -- appt made in 2 weeks. keep appt with surgery tomorrow. Related to Perianal abscess Assessments Type Assessment Date assessment Hip pain, left impression new left hip pain, d eep in groin in front. mostly when crossing legs. no hernia Mental Status Date Cognitive Assessment Orientation - [place] ed to time, place, person, situation.
--- OUTSIDE RECORDS SUMMARY | 2022-12-28 11:57 | XMS_ITS | Continuity of Care Document ---
Author Name Unknown Address [address] [place] [address] Phone [facility] Address [address] [place] [address] Phone Care Team Providers Care Director Park Name Role Phone Hardik Higuera Primary Care Provider Chief Complaint and Reason for Visit Chief Complaint CHEST PAIN, INJURY Allergies, Adverse Reactions, Alerts Allergen Type Severity Reaction Last Updated Verified Status codeine Allergy September 25, 2021 10:48am Yes A ctive Social History Smoking Status Status Start Date End Date Date of Observa tion Never smoked tobacco (finding) September 25, 2021 12:27pm Observation Status Observation Response Date of Response alcohol intake frequency a few times a month September 25, 2021 12:27pm Smoking Status Never smoker September 25, 2021 1 2:27pm Additional Data Assigned Sex Male Problems Active Problems Medical Problem Onset Date Status Chest wall muscle strain Active Medications Medication Status Dose Units Route Directions Qty Days St art Date End Date Instructions Lantus U-100 Insulin Active September 25, 2021 10:48am Novolog U-100 Insulin aspart Active September 25, 2021 10:48am lisinopril Active September 25, 2021 10:48am sertraline Active September 25, 2021 10:48am Methocarbamol Active 1000 MG PO THREE TIMES A DAY 24 September 25, 2021 12:08pm Procedures Procedure Date Performed Status Ribs 3 vw Min RT w/ PA CXR September 25, 2021 11:01a m completed Relevant Diagnostic Tests and/or Laboratory Data Diagnostic Imaging Reports Report Dictated Date/Time Dictated By Status Radiology Report September 25, 2021 11:44am Bhargav Ramirez MD completed [facility] RADIOLOGY REPORT PATIENT NAME: KIRA BENÍTEZ DATE [...] 25, 2021 11:09am Respiratory rate 18 /min 12-24 September 25, 2 022 11:45am Oxygen saturation by Pulse oximetry 98 % 95-100 September 25, 2021 11:09 am BP Systolic 140 mm[Hg] 100-140 September 25, 2021 11:09am BP Diastolic 80 mm[Hg] 50-85 September 25, 2021 11:09am Advance Directives Advance Directive Response Recorded Date/ Time Does patient have an Advanced Directive? No August 19, 2010 7:45pm Do we have a copy on file here at [facility]? No September 25, 2021 11:38am Pt has a Living Will? No August 7:45pm Do we have a copy on file here at [facility]? No September 25, 2021 11:38am Pt has a Power of Manager Nursing? No Apri l 2010 7:45pm Do we have a copy on file here at [facility]? No September 25, 2021 11:38am Insurance Providers Guarantor KIRA BENÍTEZ Address [address] [facility] [id number] Contact Info. Home Phone: Payer Policy Id Coverage Id Subscriber's Name Subscriber Id Effective Date Expiration Date [facility] [id number] KIRA BENÍTEZ [id number] SELF PAY Self N/A Encounters Encounter Location(s) Arrival/Admit Date Discharge/Depart Date Provider(s) Departed Emergency [facility]-Emergency Department September 25, 2021 10:31am September 25, 2021 12:29pm null Functional Status Observation Response Date Recorded Living Situation Home September 25, 2021 12:28pm Plan of Treatment Future Tests Future scheduled test information is unavailable Pending Tests Pending diagnostic test information is unavailable Future Visits Future appointment information is unavailable Referrals to Other Providers Reason for Referral Referral Start Date Provider Provider Contact Information Provider Address Hardik Higuera MD Work Phone: [address] [facility] [phone] Future Procedures Future procedure information is unavailable Future Medications Future medication information is unavailable Patient Instructions Muscle Strain (DC) Hospital Discharge Instructions Additional Instructions Your chest x-ray is normal. Clinically this is most [...]
== END ==
PROVIDERS: Visit Provider Student in an Organized Health Care Education/Training Program
DX: M65.252 Calcific tendinitis, left thigh (principal); M25.552 Pain in left hip
CPT/HCPCS: 73502

== ENCOUNTER 2023-03-14 07:28 | Emergency (ER) | payer MEDICAID, SELFPAY ==
[2023-03-14] VITALS (74 sets, daily range): BP systolic 70–134; BP diastolic 43–90; PULSE 56–89; RESP 11–27; TEMP 36.4; O2SAT 90–98
--- NOTE | 2023-03-14 07:39 | DI.CT_ITS ---
Exam(s) CT THORAX ABD/PEL CTA EXAM: CT THORAX ABD/PEL CTA CLINICAL HISTORY: eval aorta,severe low abd pain radiating to back. TECHNIQUE: Imaging Protocol: Axial CT angiography was performed with multi-slice acquisition and m ulti-planar and/or 3D reconstructions. CONTRAST MATERIAL: Intravenous: Omnipaque 350 contrast volume:100 mL Oral: No COMPARISON: CT CT ABDOMEN PELVIS CTA from 04/09/2022 FINDINGS: CHEST: Tracheobronchial tree: Patent where visualized. Pulmonary parenchyma: No consolidation or dominant measurable mass. No architectural distortion. Pulmonary Arteries: No central pulmonary embolus is seen. There is decreased enhancement of the segm ental and subsegmental pulmonary arteries due to the timing of the bolus. Peripheral pulmonary arter y embolus cannot be evaluated. Mediastinum and Evelin: No dominant adenopathy or fluid collection. The esophagus is unremarkable. Visualized thyroid: Unremarkable. Pleura: No effusion or pneumothorax. Heart: The heart is not dilated. Coronary artery calcification and/or stents are present. No pericar dial effusion. Aorta: Thoracic aorta non-dilated. No evidence of dissection. Atherosclerosis. Soft Tissues: Unremarkable. Bones: Within normal limits for the patient's age. ABDOMEN AND PELVIS: Abdomen: Celiac axis/mesenteric arteries: No evidence of occlusion or significant stenosis. Mild atherosclero sis at the origin. Renal Arteries: No evidence of occlusion or significant stenosis. Mild atherosclerosis at the origin of the renal arteries, left greater than right. Aorta: No evidence of occlusion or significant stenosis. Atherosclerosis. No evidence of dissectio n. There is a 4.1 x 4.0 cm infrarenal abdominal aortic aneurysm. Pelvis: Iliac Arteries: No evidence of occlusion or significant stenosis. There is atherosclerosis. There is ectasia of the right common iliac artery. Common Femoral Arteries: No evidence of occlusion or significant stenosis. Atherosclerosis is prese nt. ABDOMEN: Liver: There is decreased attenuation of the liver suggesting fatty infiltration. No measurable mass . Gallbladder and Biliary Tract: Cholelithiasis. No biliary ductal dilatation. Pancreas: Normal density, no abnormal calcifications or inflammatory process. Spleen: Normal. Adrenals: No masses seen. Kidneys: Normal size, contour and axis. No radiodense stones or obstructive uropathy. No masses seen. Bowel: There are few scattered diverticula colon but no evidence of acute diverticulitis. There is n o evidence of bowel obstruction or bowel wall thickening. There is no evidence of appendicitis. Peritoneal Cavity: No ascites, collection or mesenteric inflammatory response. No free air. Lymph Nodes: Within normal limits. Bones: Within normal limits for the patient's age. Soft Tissues: Unremarkable. PELVIS: Bladder: Symmetric distention, no gross wall thickening. Reproductive Organs: Unremarkable as visualized. Lymph Nodes: Within normal limits. Bones: Within normal limits for the patient's age. IMPRESSION: 1. No evidence of an aortic dissection. 2. 4.1 x 4.0 cm infrarenal abdominal aortic aneurysm. 3. No acute chest, abdominal or pelvic process. 4. Incidental findings in the chest, abdomen and pelvis as described above. 5. Findings were discussed with the emergency department at 8:36 a.m. on 03/14/2023. RADIATION DOSE DELIVERED: Total DLP DATA REPOSITORY: All CT scans at this facility are submitted to the National Radiology Data Registry (NRDR) Dose Index Registry (DIR) with the [employer] (ACR). RADIATION OPTIMIZATION: All CT scans at this facility use at least one of these dose optimization te chniques: automated exposure control; mA and/or kV adjustment per patient size (includes targeted exa ms where dose is matched to clinical indication); or iterative reconstruction.
--- OUTSIDE RECORDS SUMMARY | 2023-03-14 07:40 | XMS_ITS | Continuity of Care Document ---
Author Name Unknown Organization [facility] Address [address] [place] [address] Phone Care Team Providers Care Wrapping Machine Operator Name Role Phone Hardik Higuera MD Unavailable [...] sexual activity - Active Procedures Procedure Date Telemed OFFICE/OUTPATIENT VISIT, EST 992 13 OFFICE/OUTPATIENT VISIT, EST Collecton Capillary Blood Spec [...] Spec GLYCOSYLATED HEMOGLOBIN TEST OFFICE/OUTPATIENT VISIT, EST TRANS CARE MGMT 7 DAY DISCH Duplicate Encounter Advance Directives Directive Yes / No Effective Date File Name No Information Encounters Encounter Description Practice Location Reason(s) For Visit Diagnoses Date Provider Providers Copied on Encounter [facility][1] , [address] [place] [address], [id number], [place] tel:[phone] [facility] telemed (chief complaint)h ip pain (chief complaint)a nxiety (chief complaint) Hip pain, left 3 Kalen Dye. [address] [place] [address], [id number], [place]. tel:[phone] OFFICE/OUTPA TIENT VISIT, [facility] , [address] [place] [address], [id number], [place] tel:[phone] [facility] diabetes (chief complaint)a nxiety (chief complaint)d epression (chief complaint) Type 2 diabetes mellitus without complication, with long-term current use of insulinAnxiety 3 Kalen Dye. [address] [place] [address], [id number], [place]. tel:[phone] [facility][1] , [address] [place] [address], [id number], [place] tel:[phone] [facility] No Information 3 Kalen Dye. [address] [place] [address], [id number], [place]. tel:[phone] [facility][1] , [address] [place] [address], [id number], tel:[phone] [facility] No Information 3 Nurse Office. [address] [place] [address], [facility], . tel:[phone] [facility][1] , [address] [place] [address], [id number], tel:[phone] [facility] No Information 3 Kalen Dye. [address] [place] [address], [facility], [place]. tel:[phone] OFFICE/OUTPA TIENT VISIT, [facility] , [address] [place] [address], [id number], tel:[phone] [facility] cough (chief complaint)m ed management (chief complaint)d entist (chief complaint) Type 2 diabetes mellitus without complication, with long-term current use of insulinAnxietyPeri pheral vascular diseaseChronic bilateral low back pain without sciaticaDental caries, unspecified 3 Kalen Dye. [address] [place] [address], [facility], [place]. tel:[phone] OFFICE/OUTPA TIENT VISIT, [facility] , [address] [place] [address], [id number], [place] tel:[phone] [facility] diabetes (chief complaint)b ack pain (chief complaint)c hest pain (chief complaint) Type 2 diabetes mellitus without complication, with long-term current use of insulinAnxietyPeri pheral vascular diseaseChronic bilateral low back pain without sciaticaOther chronic pain 3 Kalen Dye. [address] [place] [address], [facility], [place]. tel:[phone] [facility][1] , [address] [place] [address], [id number], [place] tel:[phone] [facility] Bilateral hearing loss, unspecified hearing loss type Nov- 2 Nurse Office. [address] [place] [address], [facility], . tel:[phone] OFFICE/OUTPA TIENT VISIT, [facility] , [address] [place] [address], [id number], [place] tel:[phone] [facility] diabetes (chief complaint)f ollow up (chief complaint) Bilateral hearing loss, unspecified hearing loss typeUnspecified visual lossType 2 diabetes mellitus without complication, with long-term current use of insulinPeripheral vascular diseaseAnxietyChro rudy left shoulder painPain, dental Oct- 2 Kalen Dye. [address] [place] [address], [facility], [place]. tel:[phone] OFFICE/OUTPA TIENT VISIT, [facility] , [address] [place] [address], [id number], [place] tel:[phone] [facility] shoulder pain (chief complaint)c hest pain (chief complaint) Type 2 diabetes mellitus without complication, with long-term current use of insulinAnxietyChro rudy left shoulder painOther chronic painPeripheral vascular diseaseCigarette smoker Nov- 2 Kalen Dye. [address] [place] [address], [facility], [place]. tel:[phone] Offic/outpt E&m Estab Mod-hi [address] [place] [address] , [address] [place] [address], [id number], [place] tel:[phone] [facility] allergic (chief complaint)d iabetes (chief complaint)a nxiety (chief complaint) Type 2 diabetes mellitus without complication, with long-term current use of insulinAnxietyHTNA bdominal aortic aneurysm (AAA) without ruptureErectile dysfunction, unspecified erectile dysfunction type 2 Kalen Dye. [address] [place] [address], [facility], [place]. tel:[phone] OFFICE/OUTPA TIENT VISIT, [facility] , [address] [place] [address], [id number], [place] tel:[phone] [facility] insomnia (chief complaint) Type 2 diabetes mellitus without complication, with long-term current use of insulinAbdominal aortic aneurysm (AAA) without rupturePerianal abscessHTNAnxiety 2 Kalen Dye. [address] [place] [address], [facility], . tel:[phone] TRANS CARE MGMT 7 DAY DISCH [facility][1] , [address] [place] [address], [address] [place] [address], tel:[phone] [facility] NPV (chief complaint) Perianal abscessType 2 diabetes mellitus without complication, with long-term current use of insulinLong term (current) use of insulinHTNAbdomina l aortic aneurysm (AAA) without rupture 2 Kalen Cespedesn. [address] [place] [address], [facility], . tel:[phone] [facility][1] , [address] [place] [address], [address] [place] [address], tel:[phone] [facility] No Information 2 Kalen Dye. [address] [place] [address], [facility], . tel:[phone] Family History Family Member Type Diagnosis Age At Onset No Information Payers Payer name Insurance type Covered alliance party ID Authoriza tion(s) Medicaid [id number] [employer] Social History Type Description Quantity Date Captured Comments Alcohol Use Details No Caffeine Use Details Unknown Tobacco Use Status Smoking Status Current every day smoker 2022 Sex Male Sexual Orientation Straight or heterosexual Gender Identity Male Chief Complaint And Reason For Visit From encounter dated '12/27/2022 16:15'. telemed (chief complaint). Description: TELECOMMUNICATIONS APPOINTMENT:THIS PATIENT AND GUARDIAN EXPRESSED INFORMED CONSENT TO THIS VISITOR INFORMATION ASSISTANT, PRIOR TO INITIATING THIS TELECOMMUNICATIONS ENCOUNTER.I DISCUSSED [...] feeling no difference since starting the medication. Reason For Referral Reason For Referral No Information Plan Of Treatment Date Type Action Status Goal Dilated eye exam . Due on due Goal Urine microalbum in. Due on due Goal Hemoglobin A1C. Due on due Goal Dietitian. Due on due Goal Foot exam. Due on due Goal Calcium; Tot due Goal Depression scree christy. Due on due Goal HEPATITIS C AB TEST due Goal Zoster vaccine ( ). Due on due Goal Colonoscopy. Due on due Goal PSA. Due on due Goal INFLUENZA. Due on due Goal BMI counseling d ocumented in Health Promotion Plan. Due on due Goal Colorectal cance r screen, stool DNA QuARTS with hemoglobin MARTY. Due on due Goal HIV-1 AG W/HIV-1 & HIV-2 AB due Goal Annual PE. Due on due Goal Zoster vaccine ( 2nd). Due on due Goal FOBT. Due on due Goal Creatinine. Due on due Goal Electrocardiogra m, complete (ECG). Due on due Goal CBC due Goal Electrolyte Pane l. Due on due Goal Diabetes Screeni ng. Due on due Goal ASCVD 10 year ri sk. Due on due Goal CT low dose, penny g cancer screen. Due on due Goal Lipid panel. Due on due Goal Lipid Panel. Due on due Goal Lipid panel. Due on due Goal Urine microalbum in. Due on due Goal Electrocardiogra m, complete (ECG). Due on due Goal Dietitian. Due on due Goal Hemoglobin A1C. Due on due Goal Dilated eye exam . Due on due Goal Foot exam. Due on due Goal INFLUENZA. Due on due Goal Colorectal cance r screen, stool DNA QuARTS with hemoglobin MARTY. Due on due Goal PSA. Due on due Goal HEPATITIS C AB TEST due Goal Zoster vaccine ( ). Due on due Goal Depression scree christy. Due on due Goal Annual PE. Due on due Goal BMI counseling d ocumented in Health Promotion Plan. Due on due Goal Zoster vaccine ( 2nd). Due on due Goal FOBT. Due on due Goal Colonoscopy. Due on 023 due Goal HIV-1 AG W/HIV-1 & HIV-2 AB due Goal Electrolyte Pane l. Due on due Goal Calcium; Tot due Goal CBC due Goal Creatinine. Due on 24 due Goal ASCVD 10 year ri sk. Due on due Goal Diabetes Screeni ng. Due on due Goal CT low dose, penny g cancer screen. Due on due Goal Lipid panel. Due on due Goal Lipid panel. Due on due Goal Lipid Panel. Due on due Goal Foot exam. Due on 3 due Goal Hemoglobin A1C. Due on due Goal Dilated eye exam . Due on due Goal Urine microalbum in. Due on due Goal Dietitian. Due on 3 due Goal Colonoscopy. Due on 023 due Goal Zoster vaccine ( 2nd). Due on due Goal INFLUENZA. Due on due Goal Zoster vaccine ( 1st). Due on due Goal PSA. Due on due Goal FOBT. Due on due Goal Depression scree christy. Due on due Goal HIV-1 AG W/HIV-1 & HIV-2 AB due Goal Colorectal cance r screen, stool DNA QuARTS with hemoglobin MARTY. Due on due Goal HEPATITIS C AB TEST due Goal Annual PE. Due on due Goal BMI counseling d ocumented in Health Promotion Plan. Due on due Goal Electrolyte Pane l. Due on due Goal Electrocardiogra m, complete (ECG). Due on due Goal Creatinine. Due on 24 due Goal CBC due Goal Calcium; Tot due Goal Diabetes Screeni ng. Due on due Goal ASCVD 10 year ri sk. Due on due Goal CT low dose, penny g cancer screen. Due on due Goal Lipid panel. Due on due Goal Lipid panel. Due on due Goal Lipid Panel. Due on due Goal Lipid panel. Due on due Goal Lipid Panel. Due on due Goal Lipid panel. Due on due Goal Dietitian. Due on due Goal Foot exam. Due on due Goal Hemoglobin A1C. Due on due Goal Dilated eye exam . Due on due Goal Urine microalbum in. Due on due Goal CBC due Goal Depression scree christy. Due on due Goal FOBT. Due on due Goal HEPATITIS C AB TEST due Goal Colonoscopy. Due on 023 due Goal Annual PE. Due on due Goal INFLUENZA. Due on due Goal Colorectal cance r screen, stool DNA QuARTS with hemoglobin MARTY. Due on due Goal HIV-1 AG W/HIV-1 & HIV-2 AB due Goal BMI counseling d ocumented in Health Promotion Plan. Due on due Goal Zoster vaccine ( 1st). Due on due Goal CT low dose, penny g cancer screen. Due on due Goal PSA. Due on due Goal Zoster vaccine ( 2nd). Due on due Goal Diabetes Screeni ng. Due on due Goal Creatinine. Due on 24 due Goal Electrocardiogra m, complete (ECG). Due on due Goal Calcium; Tot due Goal Electrolyte Pane l. Due on due Goal ASCVD 10 year ri sk. Due on due Goal Hemoglobin A1C. Due on due Goal Dietitian. Due on 3 due Goal Creatinine. Due on 24 due Goal Zoster vaccine ( 2nd). Due on due Goal INFLUENZA. Due on 3 due Goal Zoster vaccine ( 1st). Due on due Goal FOBT. Due on due Goal PSA. Due on due Goal HEPATITIS C AB TEST due Goal HIV-1 AG W/HIV-1 & HIV-2 AB due Goal BMI counseling d ocumented in Health Promotion Plan. Due on due Goal Urine microalbum in. Due on due Goal Dilated eye exam . Due on due Goal Foot exam. Due on due Goal Colonoscopy. Due on due Goal Colorectal cance r screen, stool DNA QuARTS with hemoglobin MARTY. Due on due Goal Depression scree christy. Due on due Goal Annual PE. Due on 3 due Goal CBC due Goal Electrocardiogra m, complete (ECG). Due on due Goal Electrolyte Pane l. Due on due Goal Calcium; Tot due Goal Diabetes Screeni ng. Due on due Goal ASCVD 10 year ri sk. Due on due Goal CT low dose, penny g cancer screen. Due on due Goal Lipid panel. Due on due Goal Lipid Panel. Due on due Goal Lipid panel. Due on due Goal Diabetes Screeni ng. Due on due Goal ASCVD 10 year ri sk. Due on due Goal Lipid panel. Due on due Goal Lipid panel. Due on due Goal Lipid Panel. Due on due Goal Electrolyte Pane l. Due on due Goal Creatinine. Due on due Goal Dietitian. Due on due Goal Dilated eye exam . Due on due Goal Hemoglobin A1C. Due on due Goal Urine microalbum in. Due on due Goal Foot exam. Due on due Goal Zoster vaccine ( 1st). Due on due Goal Annual PE. Due on due Goal INFLUENZA. Due on due Goal BMI counseling d ocumented in Health Promotion Plan. Due on due Goal Zoster vaccine ( 2nd). Due on due Goal Depression scree christy. Due on due Goal HIV-1 AG W/HIV-1 & HIV-2 AB due Goal FOBT. Due on due Goal Colorectal cance r screen, stool DNA QuARTS with hemoglobin MARTY. Due on due Goal Colonoscopy. Due on due Goal HEPATITIS C AB TEST due Goal PSA. Due on due Goal Calcium; Tot due Goal Electrocardiogra m, complete (ECG). Due on due Goal CBC due Goal Lipid Panel. Due on 023 due Goal Lipid panel. Due on 023 due Goal Lipid panel. Due on 023 due Goal Dietitian. Due on due Goal Dilated eye exam . Due on due Goal Hemoglobin A1C. Due on due Goal Urine microalbum in. Due on due Goal Foot exam. Due on due Goal Zoster vaccine ( 1st). Due on due Goal Colorectal cance r screen, stool DNA QuARTS with hemoglobin MARTY. Due on due Goal Depression scree christy. Due on due Goal Zoster vaccine ( 2nd). Due on due Goal FOBT. Due on due Goal INFLUENZA. Due on due Goal BMI counseling d ocumented in Health Promotion Plan. Due on due Goal PSA. Due on due Goal HEPATITIS C AB TEST due Goal HIV-1 AG W/HIV-1 & HIV-2 AB due Goal ASCVD 10 year ri sk. Due on due Goal Annual PE. Due on due Goal Colonoscopy. Due on 022 due Goal Electrolyte Pane l. Due on due Goal Calcium; Tot due Goal Electrocardiogra m, complete (ECG). Due on due Goal Creatinine. Due on due Goal CBC due Goal Diabetes Screeni ng. Due on due Goal Hemoglobin A1C. Due on due Goal Urine microalbum in. Due on due Goal Dilated eye exam . Due on due Goal Dietitian. Due on due Goal Foot exam. Due on due Goal Depression scree christy. Due on due Goal ASCVD 10 year ri sk. Due on due Goal INFLUENZA. Due on due Goal FOBT. Due on due Goal Zoster vaccine ( 2nd). Due on due Goal PSA. Due on due Goal Annual PE. Due on due Goal HIV-1 AG W/HIV-1 & HIV-2 AB due Goal BMI counseling d ocumented in Health Promotion Plan. Due on due Goal Zoster vaccine ( 1st). Due on due Goal HEPATITIS C AB TEST due Goal Colonoscopy. Due on 022 due Goal Colorectal cance r screen, stool DNA QuARTS with hemoglobin MARTY. Due on due Goal Electrocardiogra m, complete (ECG). Due on due Goal Electrolyte Pane l. Due on due Goal Creatinine. Due on due Goal CBC due Goal Calcium; Tot due Goal Diabetes Screeni ng. Due on due Goal Lipid panel. Due on 023 due Goal Lipid Panel. Due on 023 due Goal Lipid panel. Due on 023 due Goal Foot exam. Due on due Goal ASCVD 10 year ri sk. Due on due Goal Urine microalbum in. Due on due Goal Hemoglobin A1C. Due on due Goal Dilated eye exam . Due on due Goal Dietitian. Due on due Goal BMI counseling d ocumented in Health Promotion Plan. Due on due Goal INFLUENZA. Due on due Goal Depression scree christy. Due on due Goal FOBT. Due on due Goal HIV-1 AG W/HIV-1 & HIV-2 AB due Goal Zoster vaccine ( ). Due on due Goal Annual PE. Due on due Goal Colonoscopy. Due on 022 due Goal Zoster vaccine ( 1st). Due on due Goal Colorectal cance r screen, stool DNA QuARTS with hemoglobin MARTY. Due on due Goal HEPATITIS C AB TEST due Goal PSA. Due on due Goal Electrolyte Pane l. Due on due Goal CBC due Goal Electrocardiogra m, complete (ECG). Due on due Goal Creatinine. Due on 23 due Goal Calcium; Tot due Goal Diabetes Screeni ng. Due on due Goal Lipid Panel. Due on due Goal Lipid panel. Due on due Goal Lipid panel. Due on due Goal Lipid panel. Due on due Goal Lipid panel. Due on due Goal Lipid Panel. Due on due Goal Foot exam. Due on due Goal Hemoglobin A1C. Due on due Goal Dilated eye exam . Due on due Goal Urine microalbum in. Due on due Goal Dietitian. Due on 2 due Goal ASCVD 10 year ri sk. Due on due Goal Zoster vaccine ( 1st). Due on due Goal Annual PE. Due on 2 due Goal HIV-1 AG W/HIV-1 & HIV-2 AB due Goal Zoster vaccine ( 2nd). Due on due Goal BMI counseling d ocumented in Health Promotion Plan. Due on due Goal Colorectal cance r screen, stool DNA QuARTS with hemoglobin MARTY. Due on due Goal Depression scree christy. Due on due Goal HEPATITIS C AB TEST due Goal Colonoscopy. Due on due Goal PSA. Due on due Goal INFLUENZA. Due on 2 due Goal FOBT. Due on due Goal Electrolyte Pane l. Due on due Goal Electrocardiogra m, complete (ECG). Due on due Goal Calcium; Tot due Goal CBC due Goal Creatinine. Due on 23 due Goal Diabetes Screeni ng. Due on due Goal Creatinine. Due on due Goal Colorectal cance r screen, stool DNA QuARTS with hemoglobin MARTY. Due on due Goal BMI counseling d ocumented in Health Promotion Plan. Due on due Goal Depression scree christy. Due on due Goal HEPATITIS C AB T EST. Due on due Goal Zoster vaccine ( 1st). Due on due Goal Zoster vaccine ( 2nd). Due on due Goal FOBT. Due on due Goal Annual PE. Due on due Goal INFLUENZA. Due on due Goal Colonoscopy. Due on due Goal HIV-1 AG W/HIV-1 & HIV-2 AB. Due on due Goal Lipid panel. Due on due Goal Dilated eye exam . Due on due Goal Foot exam. Due on due Goal Hemoglobin A1C. Due on due Goal Dietitian. Due on 2 due Goal Diabetes Screeni ng. Due on due Goal Urine microalbum in. Due on due Goal Electrolyte Pane l. Due on due Goal Calcium; Tot. Due on 2021 due Goal Electrocardiogra m, complete (ECG). Due on due Goal CBC. Due on due Goal Hemoglobin A1C. Due on due Goal Foot exam. Due on due Goal Urine microalbum in. Due on due Goal Dietitian. Due on 2 due Goal Dilated eye exam . Due on due Goal Electrocardiogra m, complete (ECG). Due on due Goal Electrolyte Pane l. Due on due Goal CBC. Due on due Goal Calcium; Tot. Due on 2021 due Goal Diabetes Screeni ng. Due on due Goal Lipid panel. Due on 022 due Goal Zoster vaccine ( 1st). Due on due Goal INFLUENZA. Due on due Goal HIV-1 AG W/HIV-1 & HIV-2 AB. Due on due Goal HEPATITIS C AB T EST. Due on due Goal Depression scree christy. Due on due Goal Zoster vaccine ( 2nd). Due on due Goal Colonoscopy. Due on 022 due Goal Annual PE. Due on due Goal Colorectal cance r screen, stool DNA QuARTS with hemoglobin MARTY. Due on due Goal FOBT. Due on due Goal BMI counseling d ocumented in Health Promotion Plan. Due on due Referral Referred To: [address] [place] [address] [phone] Ordered: Referrals: *[facility] Dental. Location: [facility]. Consult ordered Referral Ordered: [facility] -Audiology (related to Bilateral hearing loss, unspecified hearing loss type) ordered Referral Referred To: [facility] Ordered: Referrals: Audiology. [facility] ordered Referral Ordered: [facility] Audiology -Audiology (related to Bilateral hearing loss, unspecified hearing loss type) ordered Referral Referred To: Dental P [address] [place] [address], [address] [phone] Ordered: [facility]errals: [facility] Consult ordered Referral Referred To: [facility] Audiology [address] [facility] [place], [address] [phone] Ordered: Referrals: Audiology. [facility] Audiology. Location: [facility]. Consult ordered Referral Ordered: [facility] -Orthopedic Surgery (related to Chronic left shoulder pain) ordered Referral Referred To: [facility] [address] [place] [address], [address] [phone] Ordered: Referrals: Orthopedic Surgery. [facility]. Consult ordered Referral Ordered: [facility] -Ophthalmology (related to Type 2 diabetes mellitus without complication, with long-term current use of insulin) ordered Referral Referred To: [facility] [address] [place], [address] [phone] Ordered: Referrals: Ophthalmology. [facility]. Consult ordered Appointment Chaka Rodrigues BOOKED Future Order: Radiology Order XR HIP UNILATERAL 2 VIEWS, OPTIONAL PELVIS ([id number]), Ordered on: Ordered History Of Present Illness Encounter Date Complaint History Of Prese nt Illness telemed TELECOMMUNICATIO NS APPOINTMENT:THIS PATIENT AND GUARDIAN EXPRESSED INFORMED CONSENT TO THIS VISITOR INFORMATION ASSISTANT, PRIOR TO INITIATING THIS TELECOMMUNICATIONS ENCOUNTER.I DISCUSSED [...] you were seen in office. hip pain Additional infor mation: onset 2 weeks ago. location is lefty hip. Severity is 8/10 pain. Occurs primarily when legs have been crossed for a period of time and he uncrosses them. anxiety Additional infor mation: Pt reports that buspirone isn't working for him, he is feeling no difference since starting the medication. depression has been feeling much more anxious lately. hard time sleeping. restless thoughts. has been off sertraline and buspar for months as had side effects diabetes Additional infor mation: doing well overall. eating well and most veggies and fresh foods. occ high carb diet. checking BS twice per day. mostly low 100s. anxiety Additional infor mation: Stopped taking sertraline 3 months ago. cough Additional infor mation: pt is quitting smoking and cough is bad would like to discuss inhaler. dentist pt would like he lp with getting into a dentist med management pt would like re fills of medications diabetes Associated sympt oms include: Associated symptoms include: blurred vision burning of extremities, chest pain, urinary frequency, heartburn, hypoglycemic episodes - shakiness and nocturia., blurred vision, burning of extremities, chest pain, urinary frequency, heartburn, hypoglycemic episodes - shakiness and nocturia. Pertinent negatives include Pertinent negatives include constant hunger and frequent infections. constant hunger and frequent infections. chest pain The client prese nts with a complaint of chest pain. Relevant history for this client includes tobacco use. The chest pain is associated with abdominal pain and nocturia. Additional information: left sided chest pain high stress and anxiety - chewing nails frequently. back pain Additional infor mation: body seems to go into limp mode for approx 3 days at a time. not sick but no energy during this time. diabetes Associated sympt oms include: blurred vision and chest pain. Pertinent negatives include dyspnea and slow healing wounds / sores. follow up follow up on [place], pt has not heard anything on scheduling that appt.pt would like hearing and eyes checkedfatigued recently shoulder pain Location: left s h[place]. The pain is aching. Additional information: surgery 2019 pt reports last 2 months has been painful. chest pain The client prese nts with a complaint of chest pain. Additional information: pt reports would like to get arteries checked. allergic pt is allergic t o Wasps and would like access to Epi Pen.pt has been in ED last year from a sting was not able to afford Epi pen. diabetes Home glucose sonagaurav george: Min 67, Max 203, Avg 140. Associated symptoms include: blurred vision and chest pain. Pertinent negatives include burning of extremities, dyspnea and slow healing wounds / sores. anxiety insomnia The patient pres ents with sleep problems. The client does not have: smoking or use of alcohol.Additional information: pt reports legs are restless at night keeps him awake. pilonidal area all healed up per pt. pain improved. NPV New patient pres ents to establish care. currently staying at [facility] discahge visit. and est care. Hospital admission: 06/12/21-06/20/21Diagnosis: perianal [id number] male with PMH of T2DM, tobacco dependence, [...] 5 years agoCurrently staying: [facility]viously living: Martineergies: codeine when he was youngerdiabetes 230 averagewt-280Lantus Increase 45 to 50 unitsNovalag- 16 Functional Status Date Functional Assessmen t No Information Instructions Date Instruction Additional Infor mireya will order xrays to [facility] and follow up Related to Hip pain, left agreed to restart bu spar 10mg bidincrease trazodone to 150mg qhs Related to Anxiety labs today showing a 1c 8.4continue jardiance 25mg dailyadd trulicity low dose weeklyon lisinopril- BP well controlledon ASA 81mgon atorvastain 20mg Related to Type 2 diabetes mellitus without complication, with long-term current use of insulin d/c sertraline and b usparcontinue trazodone qhs [...] pain without sciatica due for follow up [facility] in july for AAA surveillance. Related to Peripheral vascular disease continue sertraline 150 mg dailycontinue clonidine low dose qhs prncontinue trazodone qhs prnadd buspirone 10mg bid for better anxiety control. Related to [facility] A1c today 7.1, still remains well controlled on just jardiance. continue jardiance 10mg dailyon lisinopril- BP well controlledon ASA 81mgon atorvastain 20mg Related to Type 2 diabetes mellitus without complication, with long-term current use of insulin Will refer for audio logy for hearing evaluation and consideration for hearing aids. Related to Bilateral hearing loss, unspecified hearing loss type Refer to [facility] last visit, patient not but hopefully will be able to offer him anything new, not interested in following up with them at this point. We will reconsider if worsening.tylenol prn for pain Related to Chronic left shoulder pain continue lantus to 5 0 u qhscheck [...] still Related to Peripheral vascular disease continue sertraline and agreed to increase to 150 mg dailycontinue clonidine low dose qhs prn Related to Anxiety will get carotid US to rule out stenosis. Related to Peripheral vascular disease agreed to trial tram adol for severe pain prn- if working well will need contract and UDS next visit. [facility] for pain Related to Chronic left shoulder pain continue lantus to 5 0 u qhspt self discontinued novolog to 16u tid qac--- willl check A1c today and reassess need for mealtime insulin ongoing. continue jardiance 10mg dailyon lisinopril- BP well controlledadd ASA 81mgon atorvastain 20mgrefer for diabetic eye exam- scheduled in december Related to Type 2 diabetes mellitus without complication, with long-term current use of insulin continue sertraline to 100mg dailycontinue clonidine low dose qhs prnmet with given some contacts to look for therapist in community Related to Anxiety agreed to trial viag ra prn. advised of cardiac sx to monitor for. Related to Erectile dysfunction, unspecified erectile dysfunction type continue lantus to 5 0 u qhscontinue novolog to 16u tid qacadding jardiance 10mg dailyon lisinopril- BP well controlledadd ASA 81mgadd atorvastain 20mg- consider increase to 40mg next visitrefer for diabetic eye examurine microalbumin next visit Related to Type 2 diabetes mellitus without complication, with long-term current use of insulin increase sertraline to 100mg dailyd/c trazodoneadd clonidine [facility] in [facility] Related to Anxiety continue lisinopril 20mg dailyla bs today Related to HTN agreed to trial trazodone qhs Re lated to Anxiety Related to Peria nal abscess continue lantus to 5 0 u qhsincrease novolog to 16u tid qacadding jardiance 10mg dailyon lisinoprildiscuss adding statin next visit Related to Type 2 diabetes mellitus without complication, with long-term current use of insulin continue lisinopril 20mg dailylabs next visit Related to HTN incres lantus to 50 u qhsincrease novolog to 16u tid qacon lisinoprildiscuss adding statin or metformin next visit Related to Type 2 diabetes mellitus without complication, with long-term current use of insulin increase lisinopril to 20mg carmita y Related to HTN continue ibuprofenag claudette to prescribe 10 days of oxy tid prn- 30 tabsthen transisiton to tramadol for taper offwould not continue oxy longer unless complciation arises. pt left [facility] shortly after our visit- goign gto stay with his sister in . but plans to contineu to follow up with [facility] for medical in the office. -- appt made in 2 weeks. keep appt with surgery tomorrow. Related to Perianal abscess Assessments Type Assessment Date assessment Hip pain, left impression new left hip pain, d eep in groin in front. mostly when crossing legs. no hernia Mental Status Date Cognitive Assessment Orientation - [place] ed to time, place, person, situation. Patient Care Teams Name Effective Dates (start - stop) Status Members No Information
--- OUTSIDE RECORDS SUMMARY | 2023-03-14 07:40 | XMS_ITS | Continuity of Care Document ---
Author Name Unknown Organization [facility], [facility] Address [address] [place] [address] Phone [phone]
--- NOTE | 2023-03-14 07:48 | ED.GENADUL_ITS ---
Discharge Plan Disposition Patient Disposition: Home Condition: Good Discharge Details Clinical Impression: Abdominal pain Primary Care Provider: Unknown,Unknown ED Provider: Meliza Whaley Home Meds and New Rx's Prescriptions: New pantoprazole [Protonix] 40 mg tablet,delayed release (DR/EC) 40 mg PO DAILY Qty: 60 0RF No Action atorvastatin 40 mg tablet 40 mg PO QHS Qty: 90 3RF lisinopril 20 mg tablet 20 mg PO DAILY aspirin 81 mg capsule 81 mg PO DAILY epinephrine 0.3 mg/0.3 mL auto-injector 0.3 mg IM ONCE Rx Instructions: as a single dose; may repeat once Jardiance 10 mg tablet 10 mg PO DAILY sertraline 100 mg tablet 150 mg PO DAILY tramadol 50 mg tablet 100 mg PO Q12H PRN buspirone 10 mg tablet 20 mg PO DAILY albuterol sulfate [Ventolin HFA] 90 mcg/actuation HFA aerosol inhaler 2 inh INHALATION Q6H PRN Patient Comments: INHALE 2 PUFFS BY MOUTH EVERY 4 TO 6 HOURS NEEDED Discharge Instructions Instructions: Abdominal Pain (ED) Additional Instructions: Tylenol OTC for pain. Start taking protonix once a day- prescription sent. You can also use over the counter antacids. Call your primary care doctor today to schedule an appointment to be seen within the next 48 hours to follow up on your visit here. Return to the emergency department for new or worsening symptoms, including new/different/worse pain, vomiting, or if you have any other concerns. Medical Decision Making 57yo M with known AAA, T2DM, GERD, HTN, HLD, diverticulitis, hx bowel surgery with removal of 18 inches of colon, presenting with lower abdominal pain persistent and worsening for 2 days, now radiating into his back bilaterally. Associated nausea, no vomiting. Vital signs reassuring, abdomen diffuse tender. History concerning for ruptured AAA , or acute/surgical intraabdominal process. Type and screen sent and CT performed emergently, independently reviewed, no a ortic aneurysm rupture or aortic dissection on my view, significant gaseous distension, discussed with radiologist and agree with radiology read below with no bowel obstruction. EKG NSR, appropriate intervals, borderline ST elevations in anterolateral leads not meeting STEMI criteria. Labs reviewed as below, CBC & CMP reassuring with no actionable abnormalities, troponin negative x 2, lactic borderline elevated at 1.6 with repeat of 0.7 after 1L IVFB. Repeat EKG unchanged. Would not further workup acute coronary syndrome at this time, patient without chest pain or shortness of breath at any point. Medicated initially with IV tylenol, morphine, toradol, diazapam with mild improvement in symptoms. On reassessment pain now located more upper, radiating into neck. Given IV droperidol, protonix, GI cocktail; on reassessment reports pain has entirely resolved. Repeat abdominal exam benign. Discharged home; discharge instructions including return precautions were reviewed with patient who verbalized understanding. Alll questions were answered and they are in full agreement with the plan. Medical Records Medical records reviewed: Yes I reviewed the patient's medical records. Medical records narrative: AAA stable over multiple prior exams Imaging Data Radiologic Study: Imaging: CT Scan Radiologist's impression: IMPRESSION: 1. No evidence of an aortic dissection. 2. 4.1 x 4.0 cm infrarenal abdominal aortic aneurysm. 3. No acute chest, abdominal or pelvic process. 4. Incidental findings in the chest, abdomen and pelvis as described above. 5. Findings were discussed with the emergency department at 8:36 a.m. on 03/14/2023. Lab Data Lab results reviewed: Yes I reviewed the patient's lab results. Labs: Laboratory Tests Range/Units 03/14/23 03/14/23 03/14/23 07:45 08:24 08:47 WBC (4.4-10.8) 10^3/uL 11.87 H RBC (4.36-5.78) 10^6/uL 5.53 Hgb (13.5-17.5) g/dL 15.9 Hct (40.0-50.0) % 46.6 MCV (80-95) fL 84 MCH (27.0-33.0) pg 28.8 MCHC (32.0-36.0) % 34.1 RDW (11.8-14.1) % 12.6 Plt Count (130-400) 10^3/uL 273 MPV (8.0-11.0) fL 8.9 Immature Gran % 0.6 Neutrophils % 70.5 Lymphocytes % 20.5 Monocytes % 6.8 Eosinophils % 0.9 Basophils % 0.7 Nucleated RBC % (0.0-0.3) % 0.0 Absolute Neutrophils (1.2-6.7) 10^3/uL 8.37 H Absolute Lymphocytes (1.2-3.4) 10^3/uL 2.43 Absolute Monocytes (0.1-0.8) 10^3/uL 0.81 H Absolute Eosinophils (0.0-0.7) 10^3/uL 0.11 Absolute Basophils (0.0-0.2) 10^3/uL 0.08 PT (9.1-11.1) sec 10.2 INR (0.9-1.1) 1.0 APTT (23.6-32.8) sec 28.3 D-Dimer VBG Lactate (0.6-1.4) mmol/L 1.6 H Sodium (136-145) mmol/L 135 L Potassium (3.5-5.1) mmol/L 4.7 Chloride (98-107) mmol/L 99 Carbon Dioxide (21.0-32.0) mmol/L 25.2 Anion Gap (3-11) mmol/L 10.8 BUN (7-18) mg/dL 25 H Creatinine (0.70-1.30) mg/dL 0.9 Est GFR (CKD-EPI 2020) (mL/min/1.73m2) 100.86 Glucose (74-106) mg/dL 308 H Calcium (8.5-10.1) mg/dL 9.9 Total Bilirubin (0.2-1.0) mg/dL 0.4 AST (15-37) U/L 18 ALT (16-63) U/L 39 Alkaline Phosphatase (46-116) U/L 150 H Troponin I (<or=60) ng/L < 50 Total Protein (6.4-8.2) g/dL 8.3 H Albumin (3.4-5.0) g/dL 4.2 Urine Color (Yellow) Yellow Urine Clarity (Clear) Clear Urine pH (5-8) 6.5 Ur Specific [place] (1.005-1.025) 1.010 Urine Protein (Negative) mg/dL Negative Urine Ketones (Negative) mg/dL Negative Urine Blood (Negative) Negative Urine Nitrite (Negative) Negative Urine Bilirubin (Negative) Negative Urine Urobilinogen (Up to 0.2) mg/dL 0.2 Ur Leukocyte Esterase (Negative) Negative Urine Glucose (Negative) mg/dL >=1000 H COVID-19 Source SARS-CoV-2 (PCR) (Negative) Patient ABO/Rh O Positive Antibody Screen NEGATIVE Range/Units 03/14/23 03/14/23 03/14/23 09:21 11:30 12:05 WBC (4.4-10.8) 10^3/uL RBC (4.36-5.78) 10^6/uL Hgb (13.5-17.5) g/dL Hct (40.0-50.0) % MCV (80-95) fL MCH (27.0-33.0) pg MCHC (32.0-36.0) % RDW (11.8-14.1) % Plt Count (130-400) 10^3/uL MPV (8.0-11.0) fL Immature Gran % Neutrophils % Lymphocytes % Monocytes % Eosinophils % Basophils % Nucleated RBC % (0.0-0.3) % Absolute Neutrophils (1.2-6.7) 10^3/uL Absolute Lymphocytes (1.2-3.4) 10^3/uL Absolute Monocytes (0.1-0.8) 10^3/uL Absolute Eosinophils (0.0-0.7) 10^3/uL Absolute Basophils (0.0-0.2) 10^3/uL PT (9.1-11.1) sec INR (0.9-1.1) APTT (23.6-32.8) sec D-Dimer Cancelled VBG Lactate (0.6-1.4) mmol/L Sodium (136-145) mmol/L Potassium (3.5-5.1) mmol/L Chloride (98-107) mmol/L Carbon Dioxide (21.0-32.0) mmol/L Anion Gap (3-11) mmol/L BUN (7-18) mg/dL Creatinine (0.70-1.30) mg/dL Est GFR (CKD-EPI 2020) (mL/min/1.73m2) Glucose (74-106) mg/dL Calcium (8.5-10.1) mg/dL Total Bilirubin (0.2-1.0) mg/dL AST (15-37) U/L ALT (16-63) U/L Alkaline Phosphatase (46-116) U/L Troponin I (<or=60) ng/L < 50 Total Protein (6.4-8.2) g/dL Albumin (3.4-5.0) g/dL Urine Color (Yellow) Urine Clarity (Clear) Urine pH (5-8) Ur Specific [place] (1.005-1.025) Urine Protein (Negative) mg/dL Urine Ketones (Negative) mg/dL Urine Blood (Negative) Urine Nitrite (Negative) Urine Bilirubin (Negative) Urine Urobilinogen (Up to 0.2) mg/dL Ur Leukocyte Esterase (Negative) Urine Glucose (Negative) mg/dL COVID-19 Source Nasal/Nares SARS-CoV-2 (PCR) (Negative) Negative Patient ABO/Rh Antibody Screen Range/Units 03/14/23 13:13 WBC (4.4-10.8) 10^3/uL RBC (4.36-5.78) 10^6/uL Hgb (13.5-17.5) g/dL Hct (40.0-50.0) % MCV (80-95) fL MCH (27.0-33.0) pg MCHC (32.0-36.0) % RDW (11.8-14.1) % Plt Count (130-400) 10^3/uL MPV (8.0-11.0) fL Immature Gran % Neutrophils % Lymphocytes % Monocytes % Eosinophils % Basophils % Nucleated RBC % (0.0-0.3) % Absolute Neutrophils (1.2-6.7) 10^3/uL Absolute Lymphocytes (1.2-3.4) 10^3/uL Absolute Monocytes (0.1-0.8) 10^3/uL Absolute Eosinophils (0.0-0.7) 10^3/uL Absolute Basophils (0.0-0.2) 10^3/uL PT (9.1-11.1) sec INR (0.9-1.1) APTT (23.6-32.8) sec D-Dimer VBG Lactate (0.6-1.4) mmol/L 0.7 Sodium (136-145) mmol/L Potassium (3.5-5.1) mmol/L Chloride (98-107) mmol/L Carbon Dioxide (21.0-32.0) mmol/L Anion Gap (3-11) mmol/L BUN (7-18) mg/dL Creatinine (0.70-1.30) mg/dL Est GFR (CKD-EPI 2020) (mL/min/1.73m2) Glucose (74-106) mg/dL Calcium (8.5-10.1) mg/dL Total Bilirubin (0.2-1.0) mg/dL AST (15-37) U/L ALT (16-63) U/L Alkaline Phosphatase (46-116) U/L Troponin I (<or=60) ng/L Total Protein (6.4-8.2) g/dL Albumin (3.4-5.0) g/dL Urine Color (Yellow) Urine Clarity (Clear) Urine pH (5-8) Ur Specific [place] (1.005-1.025) Urine Protein (Negative) mg/dL Urine Ketones (Negative) mg/dL Urine Blood (Negative) Urine Nitrite (Negative) Urine Bilirubin (Negative) Urine Urobilinogen (Up to 0.2) mg/dL Ur Leukocyte Esterase (Negative) Urine Glucose (Negative) mg/dL COVID-19 Source SARS-CoV-2 (PCR) (Negative) Patient ABO/Rh Antibody Screen HPI General Mode of arrival: ambulatory . Date/Time Provider Initiated Documentation: 03/14/23 07:28 . Limitations to Documentation: no limitations . Information obtained by: patient . HPI Narrative: 57yo M with known AAA, T2DM, GERD, HTN, HLD, diverticulitis, hx bowel surgery with removal of 18 iunches of colon, presenting with lower abdominal pain persistent and worsening for 2 days, now radiating into his back bilaterally. Associated nausea, no vomiting. Last BM two days ago, normal. No bloody stool or melena. Straining with bowel movements. No dysuria or hematuria. No fevers, chills, rash, chest pain, shortness of breath, or other concerns. Related Data Home Medications Medication Instructions Recorded Confirmed atorvastatin 40 mg tablet 40 mg PO QHS #90 tabs 01/19/20 03/14/23 aspirin 81 mg capsule 81 mg PO DAILY 03/22/22 03/14/23 empagliflozin 10 mg tablet 10 mg PO DAILY 03/22/22 03/14/23 (Jardiance) epinephrine 0.3 mg/0.3 mL 0.3 mg IM ONCE 03/22/22 03/14/23 injection, auto-injector lisinopril 20 mg tablet 20 mg PO DAILY 03/22/22 03/14/23 sertraline 100 mg tablet 150 mg PO DAILY 03/22/22 03/14/23 tramadol 50 mg tablet 100 mg PO Q12H PRN 03/22/22 03/14/23 albuterol sulfate 90 mcg/actuation 2 inh inhalation Q6H PRN 03/14/23 03/14/23 aerosol inhaler (Ventolin HFA) buspirone 10 mg tablet 20 mg PO DAILY 03/14/23 03/14/23 pantoprazole 40 mg tablet,delayed 40 mg PO DAILY #60 tabs 03/14/23 release (Protonix) Previous Rx's Medication Instructions Recorded atorvastatin 40 mg tablet 40 mg PO QHS #90 tabs 01/19/20 pantoprazole 40 mg tablet,delayed 40 mg PO DAILY #60 tabs 03/14/23 release (Protonix) Allergies Allergy/AdvReac Type Severity Reaction Status Date / Time bee venom protein (honey bee) Allergy Verified 04/13/22 09:33 codeine AdvReac Unverified 04/13/22 09:33 General Stated Complaint: Abd Prob DIEGO: 2 Review of Systems Narrative: see HPI PFSH All Active Problems (Updated 03/14/23 @ 15:45 by Meliza Whaley MD) Abdominal pain (Acute) Bilateral sensorineural hearing loss (Acute) Hepatic steatosis (Acute) Cholelithiasis (Acute) Tobacco dependence syndrome (Acute) Retrolisthesis (Acute ~10/10/13) Hyperlipidemia (Acute ~11/10/10) HTN (hypertension) (Chronic) Gastroesophageal reflux disease (Chronic) Facet hypertrophy of lumbar region (Acute ~10/10/13) DM II (diabetes mellitus, type II), controlled (Acute ~09/24/13) Degenerative disc disease, lumbar (Acute ~10/10/13) Abdominal aortic aneurysm (Acute ~01/08/15) 3.9 x 4[address] scan from 11/04/2019 Medical History Acute diverticulitis (~12/12/15) Anxiety Borderline diabetes (~11/10/10) Chronic back pain (~09/07/17) Depression Dextroscoliosis (~10/10/13) History of colonic diverticulitis Myofascial pain (~10/10/13) Obesity Restless legs syndrome (~11/09/10) Sacroiliitis Social History Smoking/Tobacco Use Status: Current-Occasional Smoking risk assessment performed?: Yes Alcohol Intake: current Alcohol Intake frequency: a few times a month Drug use: Daily Substance use type: marijuana Caregiver/Support person: No Household members: significant other Housing: house Pets and animals: No Sexually active: Yes Do you think of yourself as: straight/heterosexual Current gender identity: male What is your relationship status?: living with partner How often do you talk on the phone with friends or family?: three or more times per week How often do you get together with friends or relatives?: decline to answer How often do you attend caodaism or tenriism services?: decline to answer Do you belong to any clubs or organized social groups?: no Panel score (0-1 are the most socially isolated patients): 2 What type of physical activity do you participate in: walking Duration: 30-45 minutes/day Frequency: daily Kristin/Sikhism: None Seatbelt use: always Helmet use: No Drive intox or ride w/intox rickshaw driver: No Do you feel safe at home: Yes Do you feel safe in your relationship?: Yes Exam Narrative Exam Narrative: General: Alert, well appearing, appears to be in discomfort Head: Normocephalic, atraumatic Neck: Trachea midline, Neck supple. ENT: MMM. Cardiac: RRR, no murmurs appreciated Resp: No respiratory distress. CTAB. Abd: Soft, non-distended, diffusely TTP worse in lower abdomen and suprapubic region. No rebound. Voluntary guarding. : No suprapubic tenderness. No CVA tenderness. Extremities: No deformities. No peripheral edema. Neurologic: GCS 15. Moves all extremities freely against gravity Course Vital Signs Vital signs: Vital Signs Temperature 36.4 C 03/14/23 07:30 Pulse 89 03/14/23 07:30 Respiratory Rate 22 03/14/23 07:30 Blood Pressure 134/79 03/14/23 07:30 Pulse Oximetry 98 03/14/23 07:30 Temperature 36.4 C 03/14/23 07:30 Temperature Source Oral 03/14/23 07:30 Pulse 89 03/14/23 07:30 Respiratory Rate 22 03/14/23 07:30 Respiratory Effort Normal 03/14/23 07:37 Blood Pressure 134/79 03/14/23 07:30 Blood Pressure Position Supine 03/14/23 07:30 Pulse Oximetry 98 03/14/23 07:30 Oxygen Delivery Method Room Air 03/14/23 07:30 Oxygen Flow Rate 0 03/14/23 07:30 Pain Level 8 03/14/23 07:30
[2023-03-14] MEDS: MORPHine 10 MG/ML VIAL 6 MG IVP (07:57)
[2023-03-14] MEDS: Ondansetron 4 MG/2 ML VIAL (07:59)
[2023-03-14 08:00] LABS: Abs Immature Grans 0.07 10^3/uL (0.0-0.06); Absolute Basophil Count 0.08 10^3/uL (0.0-0.2); Absolute Eosinophil Count 0.11 10^3/uL (0.0-0.7); Absolute Lymphocyte Count 2.43 10^3/uL (1.2-3.4); Absolute Monocyte Count 0.81 10^3/uL (0.1-0.8); Absolute Neutrophil Count 8.37 10^3/uL (1.2-6.7); Basophils % 0.7; Eosinophils % 0.9; HCT 46.6 % (40.0-50.0); HGB 15.9 g/dL (13.5-17.5); Immature Grans % 0.6; Lymphocytes % 20.5; MCH 28.8 pg (27.0-33.0); MCHC 34.1 % (32.0-36.0); MCV 84 fL (80-95); MPV 8.9 fL (8.0-11.0); Monocytes % 6.8; Neutrophils % 70.5; Platelet Count 273 10^3/uL (130-400); RBC 5.53 10^6/uL (4.36-5.78); RDW 12.6 % (11.8-14.1); RDW-SD 38.4 fL; WBC 11.87 10^3/uL (4.4-10.8)
--- NOTE | 2023-03-14 08:00 | RT.EKG_ITS ---
APPROVED REPORT Exam: Resting ECG Reason for Exam: abdominal pain Patient Location: E HR:83 bpm ECG Measurements Heart Rate 83 AXIS UT 200 P 28 QRSd 79 QRS 61 QT 364 T 55 QTc 428 Conclusion Sinus rhythm. Borderline ST elevation, anterolateral leads...ST >0.06mV, I aVL V2-V6
[2023-03-14] MEDS: Normal Saline - Diluent 50 ML VIAL IJ (08:10)
[2023-03-14] MEDS: Omnipaque 350 MG/ML 500 ML BTL-Imaging package IJ (08:11)
[2023-03-14] MEDS: Normal Saline Flush 10 ML SYR IVP (08:12)
[2023-03-14 08:15] LABS: PTT Activated 28.3 sec (23.6-32.8); Prothrombin Time 10.2 sec (9.1-11.1)
[2023-03-14 08:21] LABS: ALT 39 U/L (16-63); AST 18 U/L (15-37); Albumin 4.2 g/dL (3.4-5.0); Alkaline Phosphatase 150 U/L (46-116); Anion Gap 10.8 mmol/L (3-11); BUN 25 mg/dL (7-18); Bilirubin, Total 0.4 mg/dL (0.2-1.0); CO2 25.2 mmol/L (21.0-32.0); CREATININE 0.9 mg/dL (0.70-1.30); Calcium 9.9 mg/dL (8.5-10.1); Chloride 99 mmol/L (98-107); Estimated GFR 100.86 (mL/min/1.73m2); Glucose 308 mg/dL (74-106); Potassium 4.7 mmol/L (3.5-5.1); Sodium 135 mmol/L (136-145); Total Protein 8.3 g/dL (6.4-8.2)
[2023-03-14 08:28] LABS: Lactate 1.6 mmol/L (0.6-1.4)
[2023-03-14 08:51] LABS: Troponin I < 50 ng/L (<or=60)
[2023-03-14 08:58] LABS: Bilirubin Negative (Negative); Blood Negative (Negative); Clarity Clear (Clear); Glucose >=1000 mg/dL (Negative); Ketones Negative (Negative); Leukocyte Esterase Negative (Negative); Nitrite Negative (Negative); Urobilinogen 0.2 mg/dL (Up to 0.2); pH 6.5 (5-8)
[2023-03-14] MEDS: ACETAMINOPHEN 1,000 MG/100 ML BTL 400 MG IVPB (09:53)
[2023-03-14] MEDS: diazePAM 10 MG/2 ML SYR 2.5 MG IVP (10:02)
[2023-03-14] MEDS: Ketorolac 15 MG/ML VIAL IVP (10:05)
--- NOTE | 2023-03-14 11:30 | RT.EKG_ITS ---
APPROVED REPORT Exam: Resting ECG Reason for Exam: neck pain Patient Location: E HR:67 bpm ECG Measurements Heart Rate 67 AXIS VA 238 P 33 QRSd 84 QRS 53 QT 390 T 57 QTc 411 Conclusion Sinus rhythm.. V-rate 60- 99 Prolonged VA interval...VA >210, V-rate 50- 90 ST elevation, consider anterolateral injury...ST >0.15mV, I aVL V2-V6
[2023-03-14 11:52] LABS: Troponin I < 50 ng/L (<or=60)
[2023-03-14] MEDS: Calcium Carbonate *TUMS* 500 MG CHEW 1000 MG PO (11:57)
[2023-03-14 12:13] LABS: Source Nasal/Nares
[2023-03-14] MEDS: Normal Saline 1,000 ML 1000 ML IV (12:13)
[2023-03-14 12:44] LABS: COVID-19 PCR Negative (Negative)
[2023-03-14 13:16] LABS: Lactate 0.7 mmol/L (0.6-1.4)
[2023-03-14] MEDS: Droperidol 5 MG/2 ML VIAL 2.5 MG IVP (13:31)
[2023-03-14] MEDS: Simethicone 80 MG CHEW 40 MG PO (13:38)
[2023-03-14] MEDS: Pantoprazole 40 MG VIAL IVP (14:36)
[2023-03-14] MEDS: Lidocaine 2% Viscous 1 ML Solution 5 ML PO (14:36)
== END 2023-03-14 15:51 | disposition home or self-care (01) ==
PROVIDERS: Emergency Provider Student in an Organized Health Care Education/Training Program
DX: R10.30 Lower abdominal pain, unspecified (principal); R11.0 Nausea; R94.31 Abnormal electrocardiogram [ECG] [EKG]; I71.43 Infrarenal abdominal aortic aneurysm, without rupture; E11.9 Type 2 diabetes mellitus without complications; I10 Essential (primary) hypertension; E78.5 Hyperlipidemia, unspecified; F17.200 Nicotine dependence, unspecified, uncomplicated; Z79.84 Long term (current) use of oral hypoglycemic drugs; Z79.82 Long term (current) use of aspirin; Z20.822 Contact with and (suspected) exposure to COVID-19
CPT/HCPCS: 71275; 80053; 86850; 86900; 86901; 87635; 93005; 96361; 96374; 96375; 99285; 74174; 81003; 83605; 84484; 85025; 85379; 85610; 85730; 93010; 99284; J0131; J1790; J1885; J2270; J2405; J3360

== ENCOUNTER 2025-01-12 08:29 | Emergency (ER) | payer MEDICARE, SELFPAY ==
[2025-01-12 08:30] VITALS: BP 117/79; PULSE 88; RESP 15; TEMP 36.6; O2SAT 98
[2025-01-12] MEDS: diphenhydrAMINE 25 MG CAP PO (09:00)
[2025-01-12] MEDS: Dexamethasone 4 MG TAB 8 MG PO (09:00)
--- NOTE | 2025-01-12 14:43 | W.ED.GENAD ---
Discharge Plan Disposition Patient Disposition: Home Condition: Stable Discharge Details Clinical Impression: Hx of insect sting Primary Care Provider: None,None ED Provider: Mariana Welch Home Meds and New Rx's Prescriptions: Continued atorvastatin 40 mg tablet 40 mg PO QHS Qty: 90 3RF lisinopril 20 mg tablet 20 mg PO DAILY aspirin 81 mg capsule 81 mg PO DAILY epinephrine 0.3 mg/0.3 mL auto-injector 0.3 mg IM ONCE Rx Instructions: as a single dose; may repeat once Jardiance 10 mg tablet 10 mg PO DAILY tramadol 50 mg tablet 100 mg PO Q12H PRN buspirone 10 mg tablet 20 mg PO DAILY albuterol sulfate [Ventolin HFA] 90 mcg/actuation HFA aerosol inhaler 2 inh INHALATION Q6H PRN Patient Comments: INHALE 2 PUFFS BY MOUTH EVERY 4 TO 6 HOURS NEEDED pantoprazole [Protonix] 40 mg tablet,delayed release (DR/EC) 40 mg PO DAILY Qty: 60 0RF Trulicity 4.5 mg/0.5 mL pen injector 4.5 mg SUBCUT QWEEK Patient Comments: INJECT 4.5MG SUBCUTANEOUSLY EVERY WEEK Discharge Instructions Additional Instructions: the steroid given in the emergency department will cause slight elevation of your blood sugar, this will resolve in a few days elevate your arm you may apply ice and take benadryl 25 mg every 4-6 hours for pain and swelling please return with worsening symptoms >72 hours, difficulty breathing, swallowing, or should any new concerns arise Discharge Data Discharge Date/Time-TO BE ENTERED AT DEPARTURE: 01/12/25 09:11 HPI General Date/Time Provider Initiated Documentation: 01/12/25 08:43. HPI Narrative: This 59-year-old male presents with sting to right hand. States this happened yesterday presents today secondary to spreading redness today with worsening pain. Denies any difficulty swallowing or shortness of breath. Denies any fever or chills. Otherwise reportedly asymptomatic does not history of anaphylaxis with a yellowjacket sting did not use epinephrine yesterday per patient. Related Data Home Medications ?Medication ?Instructions ?Recorded ?Confirmed atorvastatin 40 mg tablet 40 mg PO QHS #90 tabs 01/19/20 01/12/25 aspirin 81 mg capsule 81 mg PO DAILY 03/22/22 01/12/25 empagliflozin 10 mg tablet 10 mg PO DAILY 03/22/22 01/12/25 (Jardiance) epinephrine 0.3 mg/0.3 mL 0.3 mg IM ONCE 03/22/22 01/12/25 injection, auto-injector lisinopril 20 mg tablet 20 mg PO DAILY 03/22/22 01/12/25 tramadol 50 mg tablet 100 mg PO Q12H PRN 03/22/22 01/12/25 albuterol sulfate 90 mcg/actuation 2 inh inhalation Q6H PRN 03/14/23 01/12/25 aerosol inhaler (Ventolin HFA) buspirone 10 mg tablet 20 mg PO DAILY 03/14/23 01/12/25 pantoprazole 40 mg tablet,delayed 40 mg PO DAILY #60 tabs 03/14/23 01/12/25 release (Protonix) dulaglutide 4.5 mg/0.5 mL 4.5 mg subcut QWEEK 01/12/25 01/12/25 subcutaneous pen injector (Trulicity) Previous Rx's ?Medication ?Instructions ?Recorded atorvastatin 40 mg tablet 40 mg PO QHS #90 tabs 01/19/20 pantoprazole 40 mg tablet,delayed 40 mg PO DAILY #60 tabs 03/14/23 release (Protonix) Allergies Allergy/AdvReac Type Severity Reaction Status Date / Time bee venom protein (honey bee) Allergy Swelling/Ed Verified 01/12/25 08:36 brenna codeine AdvReac abdominal Unverified 01/12/25 08:36 issues General Stated Complaint: Allergic DIEGO: 3 Exam Narrative Exam Narrative: Alert and oriented 59-year-old male no acute distress redness and swelling noted to right forearm. No evidence of secondary cellulitis. Oropharynx patent uvula midline no respiratory distress Course Vital Signs Vital signs: Vital Signs Temperature 36.6 C 01/12/25 08:30 Pulse 88 01/12/25 08:30 Respiratory Rate 15 01/12/25 08:30 Blood Pressure 117/79 01/12/25 08:30 Pulse Oximetry 98 01/12/25 08:30 Temperature 36.6 C 01/12/25 08:30 Temperature Source Temporal Artery Scan 01/12/25 08:30 Pulse 88 01/12/25 08:30 Respiratory Rate 15 01/12/25 08:30 Respiratory Effort Normal 01/12/25 08:48 Respiratory Pattern Normal 01/12/25 08:48 Blood Pressure 117/79 01/12/25 08:30 Blood Pressure Position Sitting 01/12/25 08:30 Pulse Oximetry 98 01/12/25 08:30 Oxygen Delivery Method Room Air 01/12/25 08:30 Oxygen Flow Rate 0 01/12/25 08:30 Pain Level 9 01/12/25 08:30 Medical Decision Making Well-appearing 59-year-old male in no acute distress with obvious sting without obvious stinger still intact to the dorsal aspect of right hand. Patient was placed on prednisone and Benadryl. Encouraged to elevate and ice affected area. Return precautions reviewed and patient expressed understanding PFSH All Active Problems (Updated 01/12/25 @ 08:50 by [facility]) Hx of insect sting (Acute) Bilateral sensorineural hearing loss (Acute) Hepatic steatosis (Acute) Cholelithiasis (Acute) Tobacco dependence syndrome (Acute) Retrolisthesis (Acute ~10/10/13) Hyperlipidemia (Acute ~11/10/10) HTN (hypertension) (Chronic) Gastroesophageal reflux disease (Chronic) Facet hypertrophy of lumbar region (Acute ~10/10/13) DM II (diabetes mellitus, type II), controlled (Acute ~09/24/13) Degenerative disc disease, lumbar (Acute ~10/10/13) Abdominal aortic aneurysm (Acute ~01/08/15) 3.9 x 4.[address] scan from 11/04/2019 Medical History Acute diverticulitis (~12/12/15) Anxiety Borderline diabetes (~11/10/10) Chronic back pain (~09/07/17) Depression Dextroscoliosis (~10/10/13) History of colonic diverticulitis Myofascial pain (~10/10/13) Obesity Restless legs syndrome (~11/09/10) Sacroiliitis Social History Smoking/Tobacco Use Status: Current-Occasional Smoking risk assessment performed?: Yes Alcohol Intake: current Alcohol Intake frequency: a few times a month Drug use: Daily Substance use type: marijuana Caregiver/Support person: No Household members: significant other Housing: house Pets and animals: No Sexually active: Yes Do you think of yourself as: straight/heterosexual Current gender identity: male What is your relationship status?: living with partner How often do you talk on the phone with friends or family?: three or more times per week How often do you get together with friends or relatives?: decline to answer How often do you attend hinduism or christianity services?: decline to answer Do you belong to any clubs or organized social groups?: no Panel score (0-1 are the most socially isolated patients): 2 What type of physical activity do you participate in: walking Duration: 30-45 minutes/day Frequency: daily Kristin/Anabaptist: None Seatbelt use: always Helmet use: No 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
== END 2025-01-12 09:11 | disposition home or self-care (01) ==
PROVIDERS: Emergency Provider Physician Assistant
DX: M79.641 Pain in right hand (principal); T63.451A Toxic effect of venom of hornets, accidental (unintentional), initial encounter
CPT/HCPCS: 99283 ×2; J8540

== ENCOUNTER 2025-02-11 11:04 | Emergency (ER) | payer MEDICARE, SELFPAY ==
[2025-02-11] VITALS (15 sets, daily range): BP systolic 125–187; BP diastolic 75–105; PULSE 83–100; RESP 10–25; TEMP 36.3–36.9; O2SAT 94–99
--- NOTE | 2025-02-11 11:15 | RT.EKG_ITS ---
APPROVED REPORT Exam: Resting ECG Reason for Exam: Weakness Patient Location: E HR:89 bpm ECG Measurements Heart Rate 89 AXIS CO 201 P 51 QRSd 77 QRS 72 QT 346 T 58 QTc 422 Conclusion Sinus rhythm...normal P axis, V-rate 60- 99 I have reviewed and interpreted ECG and agree with software generated interpretation.
--- NOTE | 2025-02-11 11:51 | W.ED.GENAD ---
Discharge Plan Disposition Patient Disposition: Home Condition: Stable Discharge Details Clinical Impression: Abdominal pain Primary Care Provider: None,None ED Provider: Keyla Jose Home Meds and New Rx's Prescriptions: Continued atorvastatin 40 mg tablet 40 mg PO QHS Qty: 90 3RF lisinopril 20 mg tablet 20 mg PO DAILY aspirin 81 mg capsule 81 mg PO DAILY epinephrine 0.3 mg/0.3 mL auto-injector 0.3 mg IM ONCE Rx Instructions: as a single dose; may repeat once tramadol 50 mg tablet 100 mg PO Q12H PRN buspirone 10 mg tablet 20 mg PO DAILY albuterol sulfate [Ventolin HFA] 90 mcg/actuation HFA aerosol inhaler 2 inh INHALATION Q6H PRN Patient Comments: INHALE 2 PUFFS BY MOUTH EVERY 4 TO 6 HOURS NEEDED Trulicity 4.5 mg/0.5 mL pen injector 4.5 mg SUBCUT QWEEK Patient Comments: INJECT 4.5MG SUBCUTANEOUSLY EVERY WEEK dapagliflozin propanediol [Farxiga] 10 mg tablet 10 mg PO DAILY pantoprazole [Protonix] 40 mg tablet,delayed release (DR/EC) 40 mg PO DAILY PRN Discharge Instructions Instructions: Abdominal Pain, Adult ED Additional Instructions: At this time CT shows nothing abnormal. There is some improvements in your previous CTs. No evidence of appendicitis, you do have a stone in your gallbladder neck however this was apparent on a CT 2 years ago. Please follow-up with your primary care provider for further evaluation and treatment. Please take Tylenol or Ibuprofen with food every 4-6 hours as needed for pain and swelling. Follow up with primary care provider in 3-5 days. Return to ED sooner if any worsening or concerns. Referrals: Primary Care Provider [Outside] - 1 week Referral Note: ER follow-up, call for an appointment Clinical Impression: Abdominal pain HPI General Mode of arrival: wheelchair. Date/Time Provider Initiated Documentation: 02/11/25 11:22. Limitations to Documentation: no limitations. Information obtained by: patient, RN notes reviewed and old records reviewed. HPI Narrative: 59-year-old male presents to the ER with a chief complaint of right upper quadrant abdominal pain for the last 3 days. Does have a history of a colectomy, appendectomy. He denies any nausea vomiting diarrhea. Does have a past medical history of diabetes anxiety diverticulitis depression. Related Data Home Medications ?Medication ?Instructions ?Recorded ?Confirmed atorvastatin 40 mg tablet 40 mg PO QHS #90 tabs 01/19/20 02/11/25 aspirin 81 mg capsule 81 mg PO DAILY 03/22/22 02/11/25 epinephrine 0.3 mg/0.3 mL 0.3 mg IM ONCE 03/22/22 02/11/25 injection, auto-injector lisinopril 20 mg tablet 20 mg PO DAILY 03/22/22 02/11/25 tramadol 50 mg tablet 100 mg PO Q12H PRN 03/22/22 02/11/25 albuterol sulfate 90 mcg/actuation 2 inh inhalation Q6H PRN 03/14/23 02/11/25 aerosol inhaler (Ventolin HFA) buspirone 10 mg tablet 20 mg PO DAILY 03/14/23 02/11/25 dulaglutide 4.5 mg/0.5 mL 4.5 mg subcut QWEEK 01/12/25 02/11/25 subcutaneous pen injector (Trulicity) dapagliflozin propanediol 10 mg 10 mg PO DAILY 02/11/25 02/11/25 tablet (Farxiga) pantoprazole 40 mg tablet,delayed 40 mg PO DAILY PRN 02/11/25 02/11/25 release (Protonix) Previous Rx's ?Medication ?Instructions ?Recorded atorvastatin 40 mg tablet 40 mg PO QHS #90 tabs 01/19/20 Allergies Allergy/AdvReac Type Severity Reaction Status Date / Time bee venom protein (honey bee) Allergy Swelling/Ed Verified 02/11/25 12:12 brenna codeine AdvReac abdominal Unverified 02/11/25 12:12 issues General Stated Complaint: Abd Prob DIEGO: 2 Review of Systems All systems reviewed & are unremarkable except as noted in HPI and below Gastrointestinal Gastrointestinal: Reports as per HPI and Reports abdominal pain Exam Narrative Exam Narrative: Constitutional: Alert and oriented x3. Appears stated age. Normal body habitus. Head: Normocephalic, no trauma. Eyes: Pupils PERRL, Red reflex noted, EOM's intact. Eyelids symmetrical without lesions, discharge, or swelling. ENT: Bilateral TM's WNL, External ear normal to inspection, no mastoid TTP, swelling, or erythema, Nasal turbinates WNL, no nasal discharge. Normal dentition, Posterior pharynx WNL, no exudate. Chest: RRR, Normal S1, S2, distal pulses intact. Resp: Lungs clear to auscultation bilaterally, no wheezes, rales, or rhonchi. Abdomen: Soft, non-distended, Normoactive bowel sounds all 4 quads. Musculoskeletal: Normal gait, Moves all 4 extremities without difficulty. Skin: No suspicious rashes or lesions. Capillary refill less than 2 sec. Neurologic: Cranial nerves II-XII intact. Alert and oriented x 3. Motor: No deficits noted. Sensory: Intact bilaterally all 4 extremities. Hematologic/Lymphatic: No ecchymosis, no lymphadenopathy. Course Vital Signs Vital signs: Vital Signs Temperature 36.3 C L 02/11/25 11:27 Pulse 93 H 02/11/25 11:27 Respiratory Rate 17 02/11/25 11:27 Blood Pressure 187/105 H 02/11/25 11:27 Pulse Oximetry 99 02/11/25 11:27 Temperature 36.3 C L 02/11/25 11:27 Temperature Source Tympanic 02/11/25 11:27 Pulse 93 H 02/11/25 11:27 Respiratory Rate 17 02/11/25 11:27 Blood Pressure 187/105 H 02/11/25 11:27 Blood Pressure Position Sitting 02/11/25 11:27 Pulse Oximetry 99 02/11/25 11:27 Oxygen Delivery Method Room Air 02/11/25 11:27 Oxygen Flow Rate 0 02/11/25 11:27 Pain Level 8 02/11/25 11:27 Medical Decision Making 59-year-old male presents to the ER with a chief complaint of right upper quadrant abdominal pain for the last 3 days. Does have a history of a colectomy, appendectomy. He denies any nausea vomiting diarrhea. Does have a past medical history of diabetes anxiety diverticulitis depression. Abdominal pain workup ordered including CBC CMP lipase urinalysis CT abdomen pelvis for Zofran for morphine. CT shows no acute abnormality does have some chronic findings which are unchanged or improved. No leukocytosis, CMP largely within normal limits. Will discharge with instructions to follow-up with PCP. This text was generated using [employer] system, please disregard any oddities of phrase or misspellings. Imaging Data Radiologic Study: Imaging: CT Scan Radiologist's impression: IMPRESSION: 1. There is a solitary small calcified gallstone in the gallbladder neck region. The gallbladder does not appear distended nor edematous. CBD is not dilated. 2. Liver appears less steatotic than on the prior CT scan of March 2023. 3. 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 4. Mildly enlarged prostate gland. Appendix not identified. No evidence of obvious acute appendicitis. Partial sigmoid resection. No abnormality at this level.xzxc Report called by myself to ER provider 02/11/2025 at 1:52 p.m. Lab Data Lab results reviewed: Yes I reviewed the patient's lab results. Labs: Laboratory Tests Range/Units 02/11/25 11:40 WBC (4.4-10.8) 10^3/uL 8.41 RBC (4.36-5.78) 10^6/uL 6.01 H Hgb (13.5-17.5) g/dL 16.6 Hct (40.0-50.0) % 49.3 MCV (80-95) fL 82 MCH (27.0-33.0) pg 27.6 MCHC (32.0-36.0) % 33.7 RDW (11.8-14.1) % 13.3 Plt Count (130-400) 10^3/uL 275 MPV (8.0-11.0) fL 8.5 Immature Gran % % 0.7 Neutrophils % % 52.8 Lymphocytes % % 36.1 Monocytes % % 8.1 Eosinophils % % 1.3 Basophils % % 1.0 Nucleated RBC % (0.0-0.3) % 0.0 Absolute Neutrophils (1.2-6.7) 10^3/uL 4.44 Absolute Lymphocytes (1.2-3.4) 10^3/uL 3.04 Absolute Monocytes (0.1-0.8) 10^3/uL 0.68 Absolute Eosinophils (0.0-0.7) 10^3/uL 0.11 Absolute Basophils (0.0-0.2) 10^3/uL 0.08 Sodium (136-145) mmol/L 136 Potassium (3.5-5.1) mmol/L 4.8 Chloride (98-107) mmol/L 98 Carbon Dioxide (21.0-32.0) mmol/L 29.4 Anion Gap (3-11) mmol/L 8.6 BUN (7-18) mg/dL 15 Creatinine (0.70-1.30) mg/dL 0.7 Est GFR (CKD-EPI 2020) (mL/min/1.73m2) 107.47 Glucose (74-106) mg/dL 138 H Calcium (8.5-10.1) mg/dL 9.9 Magnesium (1.8-2.4) mg/dL 2.3 Total Bilirubin (0.2-1.0) mg/dL 0.5 AST (15-37) U/L 15 ALT (16-63) U/L 30 Alkaline Phosphatase (46-116) U/L 161 H Total Protein (6.4-8.2) g/dL 8.6 H Albumin (3.4-5.0) g/dL 4.5 Lipase (<78) U/L 41 PFSH All Active Problems (Updated 02/11/25 @ 14:07 by Keyla Jose NP) Abdominal pain (Acute) Hx of insect sting (Acute) Bilateral sensorineural hearing loss (Acute) Hepatic steatosis (Acute) Cholelithiasis (Acute) Tobacco dependence syndrome (Acute) Retrolisthesis (Acute ~10/10/13) Hyperlipidemia (Acute ~11/10/10) HTN (hypertension) (Chronic) Gastroesophageal reflux disease (Chronic) Facet hypertrophy of lumbar region (Acute ~10/10/13) DM II (diabetes mellitus, type II), controlled (Acute ~09/24/13) Degenerative disc disease, lumbar (Acute ~10/10/13) Abdominal aortic aneurysm (Acute ~01/08/15) 3.9 x 4.[address] scan from 11/04/2019 Medical History Acute diverticulitis (~12/12/15) Anxiety Borderline diabetes (~11/10/10) Chronic back pain (~09/07/17) Depression Dextroscoliosis (~10/10/13) History of colonic diverticulitis Myofascial pain (~10/10/13) Obesity Restless legs syndrome (~11/09/10) Sacroiliitis Social History Smoking/Tobacco Use Status: Current-Occasional Tobacco Type: cigarettes Smoking risk assessment performed?: Yes Alcohol Intake: former Drug use: Daily Substance use type: marijuana Caregiver/Support person: No Household members: significant other Housing: house Pets and animals: No Sexually active: Yes Do you think of yourself as: straight/heterosexual Current gender identity: male What is your relationship status?: living with partner How often do you talk on the phone with friends or family?: three or more times per week How often do you get together with friends or relatives?: decline to answer How often do you attend hoahaoism or shinto services?: decline to answer Do you belong to any clubs or organized social groups?: no Panel score (0-1 are the most socially isolated patients): 2 What type of physical activity do you participate in: walking Duration: 30-45 minutes/day Frequency: daily Kristin/Gnosticist: None Seatbelt use: always Helmet use: No 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
--- NOTE | 2025-02-11 11:54 | DI.CT_ITS ---
Exam(s) CT ABDOMEN PELVIS W EXAM: CT ABDOMEN PELVIS W CLINICAL HISTORY: RUQ abd pain. TECHNIQUE: Imaging Protocol: Axial computed tomography images with coronal and sagittal reformatted images were created and reviewed CONTRAST MATERIAL: Intravenous: Omnipaque-350 5cc Oral: None COMPARISON: CT CT THORAX ABD/PEL CTA from 03/14/2023 FINDINGS: VISUALIZED LUNG BASES: No nodules nor pleural effusions evident. ABDOMEN: There is no ascites. LIVER: Liver is less hypodense/steatotic than previous (03/14/2023). There are no focal hepatic lesions. No dilated intrahepatic ducts. GALLBLADDER/BILIARY: Neck region. This is unchanged in size and position from CT scan of 2 years ago. The gallbladder is not overly distended and there is no pericholecystic fluid. CBD is not dilated. PANCREAS: No evidence of pancreatic mass nor dilatation of the pancreatic duct. SPLEEN: Spleen is not enlarged. No obvious intrasplenic lesions. Splenic and portal veins are patent. ADRENALS: There are no significant adrenal masses. KIDNEYS:No cysts evident. No solid renal masses. No calculi nor hydronephrosis.. ABDOMINAL AORTA: There is again noted an infrarenal abdominal aortic aneurysm. Maximum diameter of the aneurysm is 4.2 cm, unchanged. 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 Maximum diameter of the left common carotid artery is 1.2 cm. LYMPH NODES:There is no retroperitoneal nor paraaortic adenopathy. ABDOMINAL WALL: No evidence of significant anterior abdominal wall nor inguinal hernia. GI: There is no evidence of bowel obstruction, free air, nor abscess. PELVIS: GI: Appendix not seen. No evidence of acute appendicitis.There has been partial sigmoid resection. No abnormality inflammatory process evident at this level nor elsewhere in the sigmoid. No significant diverticular disease LYMPH NODES: There is no intrapelvic nor inguinal adenopathy. REPRODUCTIVE: Mildly enlarged prostate. Seminal vesicles unremarkable. URINARY BLADDER: No calculi nor obvious masses evident OSSEOUS: No fractures and no significant osseous lesions. IMPRESSION: 1. There is a solitary small calcified gallstone in the gallbladder neck region. The gallbladder does not appear distended nor edematous. CBD is not dilated. 2. Liver appears less steatotic than on the prior CT scan of March 2023. 3. 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 4. Mildly enlarged prostate gland. Appendix not identified. No evidence of obvious acute appendicitis. Partial sigmoid resection. No abnormality at this level.xzxc Report called by myself to ER provider 02/11/2025 at 1:52 p.m. RADIATION DOSE DELIVERED: 399.59mGy.cm Total DLP DATA REPOSITORY: All CT scans at this facility are submitted to the National Radiology Data Registry (NRDR) Dose Index Registry (DIR) with the [employer] (ACR). RADIATION OPTIMIZATION: All CT scans at this facility use at least one of these dose optimization techniques: automated exposure control; mA and/or kV adjustment per patient size (includes targeted exams where dose is matched to clinical indication); or iterative reconstruction.
[2025-02-11 12:00] LABS: Abs Immature Grans 0.06 10^3/uL (0.0-0.06); HCT 49.3 % (40.0-50.0); HGB 16.6 g/dL (13.5-17.5); Immature Grans % 0.7 %; MCH 27.6 pg (27.0-33.0); MCHC 33.7 % (32.0-36.0); MCV 82 fL (80-95); MPV 8.5 fL (8.0-11.0); Platelet Count 275 10^3/uL (130-400); RBC 6.01 10^6/uL (4.36-5.78); RDW 13.3 % (11.8-14.1); RDW-SD 39.8 fL; WBC 8.41 10^3/uL (4.4-10.8)
[2025-02-11] MEDS: Normal Saline 500 ML IV (12:03)
[2025-02-11] MEDS: Ondansetron 4 MG/2 ML VIAL IVP (12:06)
[2025-02-11] MEDS: MORPHine 10 MG/ML VIAL 4 MG IVP (12:08)
[2025-02-11 12:29] LABS: ALT 30 U/L (16-63); AST 15 U/L (15-37); Albumin 4.5 g/dL (3.4-5.0); Alkaline Phosphatase 161 U/L (46-116); Anion Gap 8.6 mmol/L (3-11); BUN 15 mg/dL (7-18); Bilirubin, Total 0.5 mg/dL (0.2-1.0); CO2 29.4 mmol/L (21.0-32.0); Calcium 9.9 mg/dL (8.5-10.1); Chloride 98 mmol/L (98-107); Estimated GFR 107.47 (mL/min/1.73m2); Glucose 138 mg/dL (74-106); Lipase 41 U/L (<78); Magnesium 2.3 mg/dL (1.8-2.4); Potassium 4.8 mmol/L (3.5-5.1); Sodium 136 mmol/L (136-145); Total Protein 8.6 g/dL (6.4-8.2)
[2025-02-11] MEDS: Omnipaque 350 MG/ML 100 ML BTL IJ (13:03)
[2025-02-11] MEDS: Normal Saline Flush 10 ML SYR IVP (13:04)
[2025-02-11] MEDS: Normal Saline - Diluent 50 ML VIAL IJ (13:04)
[2025-02-11] MEDS: Ketorolac 15 MG/ML VIAL IVP (14:27)
== END 2025-02-11 14:42 | disposition home or self-care (01) ==
PROVIDERS: Emergency Provider Registered Nurse Emergency
DX: R10.11 Right upper quadrant pain (principal); I10 Essential (primary) hypertension; Z87.19 Personal history of other diseases of the digestive system
CPT/HCPCS: 36415; 80053; 83690; 93005; 96361; 96374; 96375; 99285; 74177; 83735; 85025; 93010; 99284; J1885; J2270; J2405; J3490